=== PATIENT | female | born 1950 | race Caucasian/White ===

== ENCOUNTER 2021-12-28 12:55 | Emergency (ER) | payer MEDICARE, SELFPAY ==
--- NOTE | ~2021-12-28 | CT_ITS ---
EXAMINATION: CT HEAD WITHOUT CONTRAST CT CERVICAL SPINE WITHOUT CONTRAST CLINICAL INFORMATION: Fall. COMPARISON: None. TECHNIQUE: Imaging was performed from the skull base to vertex without intravenous administration of contrast. In addition, helical noncontrast CT imaging was acquired through the cervical spine and source images were reviewed along with axial reconstructions and sagittal and coronal MPRs. [This CT examination was performed using dose optimization techniques as appropriate, variously including the following: *Automated exposure control *Adjustment of mA and/or kV according to patient size (this includes techniques or standardized protocols for targeted exams where dose is matched to indication/reason for exam; i.e. extremities or head) *Use of iterative reconstruction technique] DLP: 1650 mGy-cm FINDINGS: HEAD: No intracranial mass, hemorrhage, or midline shift is visualized. The ventricles and sulci are proportional. No extra-axial collections are identified. The paranasal sinuses and mastoid air cells are well aerated. CERVICAL SPINE: There is no evidence of acute cervical spine fracture. Vertebral bodies remain normal in height. Cervical vertebrae have normal alignment. There is multilevel degenerative spondylosis of the cervical spine with disc height narrowing and endplate spurs and facet joint arthrosis No pre- or paravertebral soft tissue abnormality is identified. Limited assessment of the lung apices is unremarkable. CT/CT cervical spine wo IV con IMPRESSION: 1. No acute intracranial pathology. 2. No CT evidence of acute cervical spine fracture or traumatic subluxation
--- NOTE | ~2021-12-28 | XR_ITS ---
EXAMINATION: XR SHOULDER, LEFT CLINICAL INFORMATION: Status post fall with left shoulder pain. COMPARISON: None TECHNIQUE: 2 views of the left shoulder. FINDINGS: The bones and soft tissues are normal. No fracture. Glenohumeral and acromioclavicular alignment is anatomic with normal joint space. No abnormal soft tissue calcifications. XR/XR shoulder LT min 2V IMPRESSION: Normal left shoulder.
--- NOTE | ~2021-12-28 | CT_ITS ---
EXAMINATION: CT HEAD WITHOUT CONTRAST CT CERVICAL SPINE WITHOUT CONTRAST CLINICAL INFORMATION: Fall. COMPARISON: None. TECHNIQUE: Imaging was performed from the skull base to vertex without intravenous administration of contrast. In addition, helical noncontrast CT imaging was acquired through the cervical spine and source images were reviewed along with axial reconstructions and sagittal and coronal MPRs. [This CT examination was performed using dose optimization techniques as appropriate, variously including the following: *Automated exposure control *Adjustment of mA and/or kV according to patient size (this includes techniques or standardized protocols for targeted exams where dose is matched to indication/reason for exam; i.e. extremities or head) *Use of iterative reconstruction technique] DLP: 1650 mGy-cm FINDINGS: HEAD: No intracranial mass, hemorrhage, or midline shift is visualized. The ventricles and sulci are proportional. No extra-axial collections are identified. The paranasal sinuses and mastoid air cells are well aerated. CERVICAL SPINE: There is no evidence of acute cervical spine fracture. Vertebral bodies remain normal in height. Cervical vertebrae have normal alignment. There is multilevel degenerative spondylosis of the cervical spine with disc height narrowing and endplate spurs and facet joint arthrosis No pre- or paravertebral soft tissue abnormality is identified. Limited assessment of the lung apices is unremarkable. CT/CT head/brain wo IV con IMPRESSION: 1. No acute intracranial pathology. 2. No CT evidence of acute cervical spine fracture or traumatic subluxation
--- NOTE | ~2021-12-28 | CT_ITS ---
EXAMINATION: CT CHEST, ABDOMEN AND PELVIS WITHOUT CONTRAST CLINICAL INFORMATION: Trauma. Fall. COMPARISON: None. TECHNIQUE: Multidetector volumetric CT imaging of the chest, abdomen and pelvis was obtained without oral or intravenous contrast. Coronal and sagittal reformatted images are performed at the CT scanner [This CT examination was performed using dose optimization techniques as appropriate, variously including the following: *Automated exposure control *Adjustment of mA and/or kV according to patient size (this includes techniques or standardized protocols for targeted exams where dose is matched to indication/reason for exam; i.e. extremities or head) *Use of iterative reconstruction technique] DLP: 2055 mGy-cm. FINDINGS: CT CHEST: Lungs: The lungs are clear with no evidence of inflammation or nodules. Mediastinum: The mediastinum is normal. Pleura: There is no pleural effusion. No pleural mass or thickening. Axilla: No lymphadenopathy. CT ABDOMEN AND PELVIS: Liver, Gallbladder and Biliary Tree: The liver is normal in size, shape, and attenuation. No focal hepatic lesion or biliary ductal dilatation is present. The gallbladder is unremarkable with no evidence of radiopaque gallstones, gallbladder wall thickening, or obvious pericholecystic inflammatory changes. Pancreas: No acute change of the pancreas. No mass. No pancreatic duct dilatation. Spleen: Spleen normal in size and contour. No focal lesion. Adrenal Glands: Right adrenal nodule measuring 1.5 cm. Density measurement -22 Hounsfield units consistent with adrenal adenoma. Left adrenal gland is normal. Kidneys and Ureters: Right kidney is smaller than the left. The kidney measures 9.6 cm in length. The left kidney measures 11.8 cm. There is no renal mass. No hydronephrosis. No renal or ureteral stone. Bladder: Unremarkable. Gastrointestinal Tract: There is no acute abnormality. There is no bowel wall thickening /edema. There is no bowel obstruction. There is a moderate volume of stool in the colon. The appendix is nonvisualized. The small bowel loops are unremarkable. The stomach is normal. There is no hiatal hernia. Mesentery: No focal inflammation. No free fluid. No free air. Abdominal Wall: No significant hernia is appreciated. Lymph Nodes: Normal. Vascular: Vascular wall calcifications of aorta and iliac arteries. There is no aneurysm. Pelvic Viscera: Unremarkable. Osseous Structures: There is no acute osseous abnormality. Multilevel generous spondylosis spine. CT/CT abdomen pelvis wo IV con IMPRESSION: CT CHEST: No acute abnormality. CT ABDOMEN PELVIS: 1. No acute abnormality the abdomen or pelvis. 2. Right adrenal adenoma.
[2021-12-28 13:22] LABS: MANUAL DIFF FLAG NO
[2021-12-28 13:24] LABS: Basophils Percent Auto 0.4 % (0-2); Eosinophils Absolute Auto 0.2 X10*3/uL (0.0-0.4); Eosinophils Percent Auto 2.4 % (0-4); Hematocrit 44.2 % (37.0-47.0); Hemoglobin 14.1 g/dl (12.0-16.0); Imm Gran Abs Auto 0.03 X10*3/uL (0.00-0.03); Imm Gran Pct Auto 0.4 % (0.0-0.4); Lymphocytes Absolute Auto 2.3 X10*3/uL (1.2-4.9); Lymphocytes Percent Auto 30.7 % (20-40); Mean Corpuscular HGB Conc 31.9 g/dl (31.0-35.0); Mean Corpuscular Hemoglobin 28.3 pg (27.0-33.0); Mean Corpuscular Volume 88.6 fL (80.0-98.0); Mean Platelet Volume 10.1 fL (9.4-12.3); Monocytes Absolute Auto 0.6 X10*3/uL (0.1-1.2); Monocytes Percent Auto 7.4 % (2-11); Neutrophils Absolute Auto 4.4 x10*3/uL (2.0-8.3); Neutrophils Percent Auto 58.7 % (45-73); Platelet Count 226 X10*3/uL (160-400); Red Blood Count 4.99 X10*6/uL (4.20-5.50); Red Cell Distribution Width 14.3 % (11.0-16.0); White Blood Count 7.6 X10*3/uL (4.8-10.8)
[2021-12-28 13:27] VITALS: BP 155/88; PULSE 86; O2SAT 97
[2021-12-28 13:28] VITALS: BP 160/88; PULSE 83; RESP 18; TEMP 37.1; O2SAT 98; BMI 33.0
[2021-12-28 13:42] LABS: Alanine Aminotransferase 23 U/L (0-31); Albumin Level 4.4 g/dL (3.5-5.0); Alkaline Phosphatase 83 U/L (39-117); Anion Gap 13 (12-20); Aspartate Amino Transferase 18 U/L (5-31); Bilirubin Total 0.3 mg/dL (0.0-1.0); Blood Urea Nitrogen 19 mg/dL (9-16); Calcium 9.8 mg/dL (8.4-10.2); Carbon Dioxide 28 mmol/L (22-29); Chloride 105 mmol/L (96-108); Creatinine Clr Calc Pharmacy 53.5; Estimated Glomerular Filt Rate 56; Glucose Random 88 mg/dL (60-115); Potassium 4.2 mmol/L (3.3-5.1); Sodium 142 mmol/L (135-145); Total Protein 6.9 g/dL (6.5-8.0)
[2021-12-28] MEDS: Cyclobenzaprine HCl 10 MG TABLET PO (14:04)
[2021-12-28] MEDS: Acetaminophen 325 MG TABLET 975 MG PO (14:05)
--- NOTE | 2021-12-28 14:06 | ED.FALL ---
HPI - Fall General Chief Complaint: Fall Stated Complaint: FALL Time Seen by Provider: 12/28/21 13:02 Source: patient and EMS Mode of arrival: EMS Limitations: no limitations History of Present Illness HPI Narrative: 71yoF presenting to the ED via EMS after she had a mechanical fall prior to arrival while at a restaurant. She reports that there were 2 benches that meet in a corner and she went to sit down and did not realize that in that corner there was no actual bench there and she went to sit down and fell into the open area where the two benches met. She fell head 1st and injured her left side of her head/left shoulder/left posterior chest wall and back. She denies prolonged down time. She denies any symptoms prior to the fall. She reports only a headache and left shoulder pain along with left posterior rib cage pain after the fall. She denies being on any blood thinners. She denies any other symptoms complaints concerns or injuries at this time. 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) Fall from: standing (trying to sit down ) Fall witnessed: yes, by family and yes, by bystander Place fall occurred: street Loss of consciousness: none Prolonged down time: no Symptoms prior to fall: none Context: other (fell into ) Location of injury: head, neck, chest and back Location of injury - extremities: left: shoulder Severity: severe Severity scale (1-10): >10 Quality: aching Associated symptoms (after fall): headache, neck pain and other (left shoulder, left rib cage pain and lower back ) Related Data Previous Rx's Medication Instructions Recorded acetaminophen 500 mg tablet 1,000 mg PO QID PRN fever or pain 12/28/21 (Tylenol Extra Strength) #14 tabs cyclobenzaprine 10 mg tablet 10 mg PO Q8H #14 tabs 12/28/21 Allergies Allergy/AdvReac Type Severity Reaction Status Date / Time Penicillins AdvReac Unknown Verified 12/28/21 13:07 Review of Systems Review of Systems: Constitutional : No Weight loss, No Fever, No Chills, No Night Sweats, No Fatigue, No Malaise ENT/Mouth : No Hearing loss, No Ear Pain, No Nasal Congestion, No Sinus Pain, No Hoarseness, No sore throat, No Rhinorrhea, No Swallowing Difficulty Eyes: No Eye Pain, No Swelling, No Redness, No Foreign Body, No Discharge, No Vision Changes Cardiovascular : No Chest Pain, No SOB, No Dyspnea on Exertion, No Orthopnea, No Edema, No Palpitations Respiratory : No Cough, No Sputum, No Wheezing, No Smoke Exposure, No Dyspnea Gastrointestinal : No Nausea, No Vomiting, No Diarrhea, No Constipation, No abdominal Pain, No Hematochezia, No Melena Genitourinary : no irregular bleeding, No Dysuria, No Urinary Frequency, No Hematuria, No Urinary Incontinence, No Urgency, No Flank Pain, No Urinary Flow Changes, No Hesitancy Musculoskeletal : + left shoulder No joint pain, + left posterior rib cage pain, No Myalgias, No Joint Swelling Skin : No Skin Lesions, No rash Neuro : No Weakness, No Numbness, No Paresthesias, No Loss of Consciousness, No Dizziness, + head injury c Headache Psych : No Anxiety/Panic, No Depression, No SI/HI/AH/VH, No Social Issues, Heme/Lymph: No Bruising, No Bleeding,No Lymphadenopathy Endocrine : No Polyuria, No Polydipsia, No Temperature Intolerance Yes all other systems are reviewed and are negative FOR[facility]LY [facility] Past Medical History Attestation statement: The following information was validated with the patient. Source: old records reviewed and nursing notes reviewed Social History Social History Advance Directives: No Physical Exam Vital Signs: Vital Signs: Last Vital Signs Temp 98.7 F 12/28/21 13:28 Pulse 83 12/28/21 13:28 Resp 18 12/28/21 13:28 BP 160/88 H 12/28/21 13:28 Pulse Ox 98 12/28/21 13:28 O2 Del Method 12/28/21 13:28 BMI result Body Mass Index 33.0 vital signs have been reviewed as normal and appeared to be correct. Blood pressure 160/88. Heart rate normal. Respiration rate normal. Temperature normal. Oxygen saturation normal. Appearance: Alert. Oriented X3. No acute distress. Head: Patient with moderate TTP to due to left parietal aspect of the scalp with soft tissue swelling and ecchymosis noted. No obvious scalp depressions or obvious deformities. The rest of the external exam is within normal limits. No [place] signs noted. No raccoon eyes noted Eyes: PERRLA. EOMI. Conjunctiva and sclera normal. Eyelids normal. ENT: EAC normal. TM's Normal. No septal hematoma noted. No hemotympanum noted. Pharynx normal. Uvula midline. Moist mucous membranes. No lesions/ulcerations or masses noted on the tongue. Normal voice. No trismus noted. No drooling noted. No muffled voice noted. Neck: Normal inspection. Neck supple. FROM. No adenopathy. Thyroid Normal. No tracheal deviation noted. No crepitus is noted. No meningeal signs. No neck mass noted. No signs of trauma noted. CVS: Normal heart rate and rhythm. Heart sound normal. Pulses normal throughout. No murmurs/rales/gallops. Respiratory: No respiratory distress. Painless inspiration. Breath sounds normal. No wheezes/rales/rhonchi noted. Chest posterior chest wall. No crepitus is noted. No accessory muscle usage noted or decreased air movement noted. No signs of trauma. Abdomen: Soft and nontender. Nondistended. No guarding. No rigidity. Bowel sounds normal in all 4 quadrants. No distention noted. No organomegaly noted. No visible injury noted. No rebound tenderness. Negative Rovsing sign. Negative obturator's sign. Negative psoas sign. Negative [place] sign. Back: No CVA tenderness. Full range of motion noted. Nontender. No signs of trauma. Patient neuro intact bilaterally and distally on all 4 extremities. Patient's reflexes intact bilaterally and distally on all 4 extremities. No rashes/lesion/induration/fluctuance or signs of infection noted. Skin: Skin warm and dry. Normal skin color. Normal skin turgor. No rashes/lesions/lacerations noted. Extremities: patient with TTP and STS and ecchymosis and superficial abrasion to the left AC joint with limited range of motion with adbuction/flexion/extension. Otherwise all other Extremities exhibit normal range of motion and nontender. Neuro: Oriented X 3. No motor deficit. No sensory deficit. Reflexes normal. Normal steady gait. No focal neuro deficits noted. CN's II-XII intact bilaterally? Vascular: + radial pulses/+ 2 distal pedal pulses/+2 dorsalis pedis b/l. Normal cap refill. No cyanosis noted to upper extremity nails and lower extremity toes nails. Course Course Course Narrative: 13:40pm - 71yoF presenting to the ED via EMS after she had a mechanical fall prior to arrival while at a restaurant. She reports that there were 2 benches that meet in a corner and she went to sit down and did not realize that in that corner there was no actual bench there and she went to sit down and fell into the open area where the two benches met. She fell head 1st and injured her left side of her head/left shoulder/left posterior chest wall and back. She denies prolonged down time. She denies any symptoms prior to the fall. She reports only a headache and left shoulder pain along with left posterior rib cage pain after the fall. She denies being on any blood thinners. Plan: labs, CT scan/cervical spine/chest/abd and pelvis. Provide tylenol and flexeril and re-evaluate Reevaluation(s) Reevaluation #1: All labs and imaging within normal limits. No fractures or acute processes noted. Therefore at this time will place in a sling and treat symptomatic and instructed follow-up with PCP and to follow-up with orthopedics if symptoms persist for longer than 2-3 weeks. Patient with sister at bedside understand agree this plan. Time: 16:27 Medications Administered Discontinued Medications Generic Name Dose Route Start Last Admin Trade Name Freq PRN Reason Stop Dose Admin Acetaminophen 975 mg 12/28/21 13:41 12/28/21 14:05 Acetaminophen 325 Mg Tablet PO 12/28/21 13:42 975 mg ONCE ONE Administration Cyclobenzaprine HCl 10 mg 12/28/21 13:41 12/28/21 14:04 Cyclobenzaprine Hcl 10 Mg Tablet PO 12/28/21 13:42 10 mg ONCE ONE Administration Procedures Orthopedic Splinting/Casting Injury #1: Side: left Upper Extremity Injury Location: shoulder Upper Extremity Immobilizer: sling/shoulder immobilizer MDM - Fall Medical Records Attestation: I reviewed the patient's medical records. Lab Data Attestation: I reviewed the patient's lab results. Result diagrams: 12/28/21 13:19 12/28/21 13:19 Labs: Lab Results 12/28/21 12/28/21 Range/Units 13:19 13:19 WBC 7.6 (4.8-10.8) X10*3/uL RBC 4.99 (4.20-5.50) X10*6/uL Hgb 14.1 (12.0-16.0) g/dl Hct 44.2 (37.0-47.0) % MCV 88.6 (80.0-98.0) fL MCH 28.3 (27.0-33.0) pg MCHC 31.9 (31.0-35.0) g/dl RDW 14.3 (11.0-16.0) % Plt Count 226 (160-400) X10*3/uL MPV 10.1 (9.4-12.3) fL Immature Gran % (Auto) 0.4 (0.0-0.4) % Neut % (Auto) 58.7 (45-73) % Lymph % (Auto) 30.7 (20-40) % [place] % (Auto) 7.4 (2-11) % Eos % (Auto) 2.4 (0-4) % Baso % (Auto) 0.4 (0-2) % Lymph # (Auto) 2.3 (1.2-4.9) X10*3/uL [place] # (Auto) 0.6 (0.1-1.2) X10*3/uL Eos # (Auto) 0.2 (0.0-0.4) X10*3/uL Baso # (Auto) 0.0 (0.0-0.2) X10*3/uL Abs Immat Gran (auto) 0.03 (0.00-0.03) X10*3/uL Absolute Neuts (auto) 4.4 (2.0-8.3) x10*3/uL Absolute Nucleated RBC 0.000 (0.0-0.012) X10*3/uL Nucleated RBC % (auto) 0.0 (0.0-0.2) /100WBC Sodium 142 (135-145) mmol/L Potassium 4.2 (3.3-5.1) mmol/L Chloride 105 (96-108) mmol/L Carbon Dioxide 28 (22-29) mmol/L Anion Gap 13 (12-20) BUN 19 H (9-16) mg/dL Creatinine 0.98 (0.5-1.4) mg/dL Estim Creat Clear Calc 53.5 Estimated GFR 56 Random Glucose 88 (60-115) mg/dL Calcium 9.8 (8.4-10.2) mg/dL Total Bilirubin 0.3 (0.0-1.0) mg/dL AST 18 (5-31) U/L ALT 23 (0-31) U/L Alkaline Phosphatase 83 (39-117) U/L Total Protein 6.9 (6.5-8.0) g/dL Albumin 4.4 (3.5-5.0) g/dL Imaging Data CT scan of brain/cervical spine without contrast: Attestation: I personally reviewed and interpreted this imaging study as follows: Radiologist's impression: FINDINGS: HEAD: No intracranial mass, hemorrhage, or midline shift is visualized. The ventricles and sulci are proportional. No extra-axial collections are identified. The paranasal sinuses and mastoid air cells are well aerated. CERVICAL SPINE: There is no evidence of acute cervical spine fracture. Vertebral bodies remain normal in height. Cervical vertebrae have normal alignment. There is multilevel degenerative spondylosis of the cervical spine with disc height narrowing and endplate spurs and facet joint arthrosis No pre- or paravertebral soft tissue abnormality is identified. Limited assessment of the lung apices is unremarkable. CT/CT head/brain wo IV con IMPRESSION: 1. No acute intracranial pathology. 2. No CT evidence of acute cervical spine fracture or traumatic subluxation ? ? left shoulder xray: Attestation: I personally reviewed and interpreted this imaging study as follows: Radiologist's impression: FINDINGS: The bones and soft tissues are normal. No fracture. Glenohumeral and acromioclavicular alignment is anatomic with normal joint space. No abnormal soft tissue calcifications.? XR/XR shoulder LT min 2V IMPRESSION: Normal left shoulder. CT scan of chest and CT scan abdomen pelvis without IV contrast: Attestation: I personally reviewed and interpreted this imaging study as follows: Radiologist's impression: FINDINGS: CT CHEST: Lungs: The lungs are clear with no evidence of inflammation or nodules. ? Mediastinum: The mediastinum is normal.? Pleura: There is no pleural effusion. No pleural mass or thickening.? Axilla: No lymphadenopathy.? CT ABDOMEN AND PELVIS: Liver, Gallbladder and Biliary Tree: The liver is normal in size, shape, and attenuation. No focal hepatic lesion or biliary ductal dilatation is present. The gallbladder is unremarkable with no evidence of radiopaque gallstones, gallbladder wall thickening, or obvious pericholecystic inflammatory changes.? Pancreas: No acute change of the pancreas. No mass. No pancreatic duct dilatation.? Spleen: Spleen normal in size and contour. No focal lesion.? Adrenal Glands: Right adrenal nodule measuring 1.5 cm. Density measurement -22 Hounsfield units consistent with adrenal adenoma. Left adrenal gland is normal.? Kidneys and Ureters: Right kidney is smaller than the left. The kidney measures 9.6 cm in length. The left kidney measures 11.8 cm. There is no renal mass. No hydronephrosis. No renal or ureteral stone.? Bladder: Unremarkable.? Gastrointestinal Tract: There is no acute abnormality. There is no bowel wall thickening /edema. There is no bowel obstruction. There is a moderate volume of stool in the colon. The appendix is nonvisualized. The small bowel loops are unremarkable. The stomach is normal. There is no hiatal hernia.? Mesentery: No focal inflammation. No free fluid. No free air. Abdominal Wall: No significant hernia is appreciated.? Lymph Nodes: Normal. Vascular: Vascular wall calcifications of aorta and iliac arteries. There is no aneurysm. Pelvic Viscera: Unremarkable.? Osseous Structures: There is no acute osseous abnormality. Multilevel generous spondylosis spine.? CT/CT abdomen pelvis wo IV con IMPRESSION: CT CHEST: No acute abnormality. ? CT ABDOMEN PELVIS: 1.? No acute abnormality the abdomen or pelvis. 2.? Right adrenal adenoma. ? Discharge Plan Discharge Clinical Impression: Fall, Concussion, Sprain of left shoulder, Rib pain on left side Patient Disposition: Home, Self-Care Instructions: Concussion (ED), Shoulder Sprain (ED) Prescriptions: New acetaminophen [Tylenol Extra Strength] 500 mg tablet 1,000 mg PO QID PRN (Reason: fever or pain) Qty: 14 0RF cyclobenzaprine 10 mg tablet 10 mg PO Q8H Qty: 14 0RF Referrals: Physician,Unknown J [Primary Care Provider] - (your pcp) [facility] [Provider Group] (If symptoms persist for longer than 2-3 weeks and you should make a follow-up appointment)
--- NOTE | 2021-12-28 16:12 | PC.NURSE ---
KEVIN Sarabia told me to acquire vitals from pt when i entered and told the family that I was going to get vitals. pt family stated they are sleeping and would prefer i don't get vital rn aware
== END 2021-12-28 16:52 | disposition home or self-care (01) ==
PROVIDERS: Physician Assistant Medical; Emergency Provider Emergency Medicine Emergency Medical Services
DX: S06.0X0A Concussion without loss of consciousness, initial encounter (principal); S43.402A Unspecified sprain of left shoulder joint, initial encounter; R07.81 Pleurodynia; M54.50 Low back pain, unspecified; M54.2 Cervicalgia; M54.6 Pain in thoracic spine; R10.2 Pelvic and perineal pain; W01.0XXA Fall on same level from slipping, tripping and stumbling without subsequent striking against object, initial encounter; Y93.9 Activity, unspecified; Y92.511 Restaurant or cafe as the place of occurrence of the external cause; Y99.9 Unspecified external cause status; Z79.899 Other long term (current) drug therapy
CPT/HCPCS: 36415; 70450; 71250; 72125; 73030; 74176; 80053; 85025; 99284

== ENCOUNTER 2022-03-02 06:52 | Outpatient (REF) | payer MEDICARE, SELFPAY ==
[2022-03-02 11:43] LABS: MANUAL DIFF FLAG NO
[2022-03-02 11:55] LABS: Basophils Percent Auto 0.5 % (0-2); Eosinophils Absolute Auto 0.2 X10*3/uL (0.0-0.4); Eosinophils Percent Auto 2.6 % (0-4); Hematocrit 47.2 % (37.0-47.0); Imm Gran Abs Auto 0.01 X10*3/uL (0.00-0.03); Imm Gran Pct Auto 0.2 % (0.0-0.4); Lymphocytes Absolute Auto 2.4 X10*3/uL (1.2-4.9); Lymphocytes Percent Auto 39.4 % (20-40); Mean Corpuscular HGB Conc 31.8 g/dl (31.0-35.0); Mean Corpuscular Hemoglobin 28.6 pg (27.0-33.0); Mean Corpuscular Volume 89.9 fL (80.0-98.0); Mean Platelet Volume 10.7 fL (9.4-12.3); Monocytes Absolute Auto 0.5 X10*3/uL (0.1-1.2); Monocytes Percent Auto 7.7 % (2-11); Neutrophils Percent Auto 49.6 % (45-73); Platelet Count 246 X10*3/uL (160-400); Red Blood Count 5.25 X10*6/uL (4.20-5.50); Red Cell Distribution Width 14.6 % (11.0-16.0); White Blood Count 6.1 X10*3/uL (4.8-10.8)
[2022-03-02 12:14] LABS: Alanine Aminotransferase 17 U/L (0-31); Albumin Level 4.2 g/dL (3.5-5.0); Alkaline Phosphatase 76 U/L (39-117); Anion Gap 14 (12-20); Aspartate Amino Transferase 15 U/L (5-31); Bilirubin Total 0.6 mg/dL (0.0-1.0); Blood Urea Nitrogen 17 mg/dL (9-16); Calcium 9.9 mg/dL (8.4-10.2); Carbon Dioxide 29 mmol/L (22-29); Chloride 105 mmol/L (96-108); Cholesterol 220 mg/dL; Estimated Glomerular Filt Rate > 60; Glucose Fasting 107 mg/dL (60-99); HDL Cholesterol 52 mg/dL; LDL Cholesterol Calculated 145 mg/dl; Potassium 4.6 mmol/L (3.3-5.1); Sodium 143 mmol/L (135-145); Total Protein 6.8 g/dL (6.5-8.0); Triglycerides 115 mg/dL
[2022-03-02 12:34] LABS: TSH reflex Free T4 1.52 uIU/mL (0.32-4.0); Vitamin D 25-OH Total 24.7 ng/mL (>30)
== END 2022-03-02 06:53 | disposition home or self-care (01) ==
LOC: HO.HMGCLDS 06:52
PROVIDERS: PCP Nurse Practitioner Family; Visit Provider Family Medicine
DX: Z00.00 Encounter for general adult medical examination without abnormal findings (principal); E55.9 Vitamin D deficiency, unspecified; I10 Essential (primary) hypertension
CPT/HCPCS: 36415; 80053; 80061; 82306; 84443; 85025

== ENCOUNTER 2022-03-25 13:59 | Outpatient (REF) | payer MEDICARE, SELFPAY ==
[2022-03-25 14:15] LABS: Appearance Urine Clear; Color Urine Yellow; Glucose Urine UA Negative (Negative); Leukocyte Esterase Urine Trace (Negative); Nitrite Urine Negative (Negative); PH 5.5 (5.0-9.0); UMIC TRIGGER UA YES; Urine Blood Negative (Negative); Urine Ketones Negative (Negative); Urine Protein Negative (Neg-Trace)
[2022-03-25 14:18] LABS: Bacteria Urine 1+ (None Seen); Hyaline Casts Urine 0-2 /LPF (0-2); RBC Urine 0-2 /HPF (0-2); WBC Urine 0-5 /HPF (0-5)
[2022-03-25 15:13] LABS: Creatinine Urine 101.08 mg/dL; Microalbum/Creatinine Ratio Ur 14.8 ug/mg cr
== END 2022-03-25 14:00 | disposition home or self-care (01) ==
LOC: HO.LNP 13:59
PROVIDERS: Visit Provider Family Medicine
DX: I10 Essential (primary) hypertension (principal)
CPT/HCPCS: 81001; 82043

== ENCOUNTER 2022-09-26 09:19 | Outpatient (AMB) | payer MEDICARE, SELFPAY ==
[2022-09-26 09:25] VITALS: BP 138/90; PULSE 88; RESP 13; TEMP 36.5; O2SAT 99
--- NOTE | 2022-09-26 09:25 | A.OFFPC_ITS ---
Vital Signs 09/26/22 09:25 Height 5 ft 3 in BMI Reason not done Patient refused/unable BP 138/90 H Blood Pressure Location Rt brachial Position Sitting Respiration 13 Pulse 88 Temp 97.7 F Temp Source Temporal Artery Scan Pulse Oximetry (%) 99 Oxygen Delivery Method Room Air Intake Visit Reasons: Pain in Throat Intake Note: Patient states that symptoms started on Monday09/23/22. Patient states that when she presses down on throat she can feel the pain. Patient states that when she lays down it feels like her throat is closing up. Patient states she has tried taking medicine over this past weekend to see if it would help and it hasnt. Patient states that she thinks it might be an infection in her throat. Patient would like hearing checked. Associate Media Director Required: No Accompanied by: Self / Same As Patient Allergies Penicillins Adverse Reaction (Verified 09/26/22 09:35) Unknown Medication List - Last Reconciled 09/26/22 by Phyllis Porter CNP betamethasone dipropionate 0.05% 1 appl topical BID PRN cholecalciferol (vitamin D3) 25 mcg PO DAILY 90 days ketoconazole 2% 1 appl topical 3XW Tobacco use date assessed: 03/25/22 Fall risk assessment: 1 Fall in past year Last assessed Fall Risk: 09/26/22 Dental Screening Dental Screen Date: 09/26/22 Did you have a dental visit in the last 12 months?: No Did you have a dental problem in the last 6 months where you did not have access to dental care?: No Was dental information given to patient?: Yes HPI HPI Comments History of Present Illness Details 71-year-old female presents with complaints of throat pain. She reports pain with swallowing, yawning, and palpation of her anterior neck. She notes it feels as though her throat is closing while lying supine. She reports associated fatigue. Her symptoms have been ongoing for the past 4 days and refractory to bloy-wwm-eqzxwud remedies. No sick contact. No fever, chills, body aches, fatigue, or weakness. [facility] Medical History (Updated 09/26/22 @ 10:06 by Phyllis Portre CNP) No pertinent past medical history Surgical History (Updated 09/26/22 @ 09:42 by Linda Berry MA) No pertinent past surgical history Family History (Updated 08/14/23 @ 09:43 by Linda Berry MA) Sister Diabetes Social History Housing: Condominium Patient Tobacco Use Status: Current someday Tobacco user Tobacco use type: Cigarette Cigarettes Per Day: 4 e-Cigarette/Vaping Use: Never Used Second Hand Smoke Exposure: No service: No Current occupational status: retired Current occupational exposures/hazards: No Cognitive needs: No Hearing needs: Yes Vision needs: Yes Questionnaire Thrive Questionnaire Date Thrive assessed: 03/25/22 MATT-7 AMB Questionnaire MATT-7 Date MATT - 7 assessed: 03/25/22 Source: Developed by Drs. Shai Pereyra, Janette Martel, Cheikh Theodore and colleagues, with an educational rosie from [employer]. Review of Systems Const Details: Const Denies chills, Denies fatigue, Denies fever(s), Denies headache(s) and Denies weakness ENT Reports as per HPI Card Denies chest pain, Denies lightheadedness, Denies dyspnea and Denies other (Palpitations) Resp Denies cough, Denies dyspnea, Denies wheezing and Denies other ( shortness of breath) GI Denies abdominal pain, Denies melena, Denies hematochezia, Denies change in bowel habits, Denies dyspepsia and Denies nausea Denies hematuria and Denies dysuria Musc Denies abnormal gait, Denies myalgias, Denies arthralgias, Denies numbness and Denies tingling Neuro Denies abnormal gait, Denies dizziness, Denies headache(s), Denies memory loss, Denies numbness, Denies Sensory deficit (Neuro), Denies tingling and Denies weakness Psych Denies anxiety, Denies depression, Denies memory loss Endo Denies cold intolerance, Denies fatigue, Denies heat intolerance, Denies polydipsia and Denies polyuria Aller/Immun Denies wheezing Physical exam (Primary Care) Vital Signs: Last Vital Signs Temp 97.7 F 09/26/22 09:25 Pulse 88 09/26/22 09:25 Resp 13 09/26/22 09:25 BP 138/90 H 09/26/22 09:25 Pulse Ox 99 09/26/22 09:25 Oxygen Delivery Method Room Air 09/26/22 09:25 Tobacco/Smoking Status: Tobacco use Status Tobacco use date assessed 03/25/22 09/26/22 09:30 Patient Tobacco Use Status Current everyday Tobacco 09/26/22 09:30 e-Cigarette/Vaping Use Never Used 09/26/22 09:30 Thrive Assessment: Date of Thrive Assessment Date Thrive assessed 03/25/22 09/26/22 09:30 Const Other: General: no acute distress and well developed Nutritional Appearance: well nourished Orientation/consciousness: patient oriented x3 [facility] ENT Head is normocephalic Bilateral ear canal and TM are normal Nasal turbinates are pink and moist Oropharynx and tonsils with minimal erythema and yellow patches, tonsils are slightly swollen; consistent with strep pharyngitis Sinuses are nontender with palpation No auricular or cervical lymphadenopathy Eyes General: appearance normal, both eyes and all related structures Pupils: Equal, round and reactive pupils present EOM: EOMs intact bilaterally Resp Effort & Inspection: normal respiratory effort Auscultation: clear to auscultation bilaterally Cardio Rate: regular rate Rhythm: regular rhythm Heart sounds: S1 normal heart sound present, S2 normal heart sound present, no gallops, no murmurs and no rubs GI Palpation (GI): No Abdominal aortic bruit present, Soft to palpation, nontender, No hepatosplenomegaly present and No Rebound tenderness present Auscultation: normal bowel sounds General: Yes no CVA tenderness Back/Spine/Pelvis Back: no CVA tenderness Cervical Spine: cervical ROM normal and No Cervical spine tenderness Thoracic/Lumbar Spine: thoraco-lumbar ROM normal, No pain with thoraco-lumbar ROM, No thoracic spinal tenderness and No lumbar spinal tenderness Extrem General: Yes normal to inspection, No edema and No calf tenderness Neuro General: patient oriented x3, gait normal and no focal neuro deficit Cranial nerves: Yes Equal, round and reactive pupils present Cognition (Neuro): normal cognition Gait exam (Neuro): Normal gait present Sensory Exam: No Sensory deficit (Neuro) Psych Appearance: grossly normal Affect: normal affect Attitude: cooperative Thought process: Normal thought process present Assessment and Plan Assessment & Plan (1) Strep pharyngitis: Code(s): J02.0 - Streptococcal pharyngitis Plan: Oropharynx and tonsils with minimal erythema and yellow patches, tonsils are slightly swollen; consistent with strep pharyngitis Z-Jeramie ordered. Take as prescribed May take Tylenol or Motrin for pain or discomfort Adequate hydration encouraged Return with worsening or new symptoms Verbalized understanding and agreed with treatment plan. Medications: New azithromycin (Zithromax Z-Jeramie) For 250 mg dose pack: take 500 mg today (day 1), then 250 mg for 4 days (days 2-5) PO 6 tabs 0RF Coding Level of Care Code Est Pt Level 3 (69966) Diagnoses Strep pharyngitis J02.0
== END 2022-09-26 10:12 | disposition home or self-care (01) ==
PROVIDERS: PCP Nurse Practitioner Family; Visit Provider Nurse Practitioner Family
DX: J02.0 Streptococcal pharyngitis (principal)
CPT/HCPCS: 99213

== ENCOUNTER 2022-09-29 07:10 | Outpatient (REF) | payer MEDICARE, SELFPAY ==
[2022-09-29 11:59] LABS: Cholesterol 214 mg/dL; HDL Cholesterol 55 mg/dL; LDL Cholesterol Calculated 139 mg/dl; Triglycerides 103 mg/dL
[2022-09-29 12:17] LABS: Vitamin D 25-OH Total 53.2 ng/mL (>30)
== END 2022-09-29 07:11 | disposition home or self-care (01) ==
LOC: HO.HMGCLDS 07:10
PROVIDERS: PCP Nurse Practitioner Family; Visit Provider Nurse Practitioner Family
DX: E55.9 Vitamin D deficiency, unspecified (principal); E78.00 Pure hypercholesterolemia, unspecified
CPT/HCPCS: 36415; 80061; 82306

== ENCOUNTER 2022-12-19 06:49 | Outpatient (REF) | payer MEDICARE, SELFPAY ==
[2022-12-19 11:15] LABS: MANUAL DIFF FLAG NO
[2022-12-19 11:35] LABS: Basophils Percent Auto 0.5 % (0-2); Eosinophils Absolute Auto 0.2 X10*3/uL (0.0-0.4); Eosinophils Percent Auto 2.6 % (0-4); Hematocrit 45.9 % (37.0-47.0); Hemoglobin 14.5 g/dl (12.0-16.0); Imm Gran Abs Auto 0.01 X10*3/uL (0.00-0.03); Imm Gran Pct Auto 0.2 % (0.0-0.4); Lymphocytes Percent Auto 34.5 % (20-40); Mean Corpuscular HGB Conc 31.6 g/dl (31.0-35.0); Mean Corpuscular Hemoglobin 27.8 pg (27.0-33.0); Mean Corpuscular Volume 88.1 fL (80.0-98.0); Mean Platelet Volume 10.7 fL (9.4-12.3); Monocytes Absolute Auto 0.5 X10*3/uL (0.1-1.2); Monocytes Percent Auto 7.9 % (2-11); Neutrophils Absolute Auto 3.2 x10*3/uL (2.0-8.3); Neutrophils Percent Auto 54.3 % (45-73); Platelet Count 236 X10*3/uL (160-400); Red Blood Count 5.21 X10*6/uL (4.20-5.50); Red Cell Distribution Width 14.3 % (11.0-16.0); White Blood Count 5.8 X10*3/uL (4.8-10.8)
[2022-12-19 11:53] LABS: Alanine Aminotransferase 16 U/L (0-31); Albumin Level 4.1 g/dL (3.5-5.0); Alkaline Phosphatase 88 U/L (39-117); Anion Gap 11 (12-20); Aspartate Amino Transferase 15 U/L (5-31); Bilirubin Total 0.4 mg/dL (0.0-1.0); Blood Urea Nitrogen 19 mg/dL (9-16); Calcium 9.7 mg/dL (8.4-10.2); Carbon Dioxide 30 mmol/L (22-29); Chloride 105 mmol/L (96-108); Estimated Glomerular Filt Rate > 60; Glucose Random 98 mg/dL (60-115); Potassium 4.3 mmol/L (3.3-5.1); Sodium 142 mmol/L (135-145); Total Protein 6.9 g/dL (6.5-8.0)
[2022-12-20 06:12] LABS: HBS Num1 24.37 mIU/mL (0-7.99); HBc Num1 0.08 S/CO (0.00-0.79); HBsAGNum1 0.33 S/CO (0.00-0.99); Hepatitis B Core Antibody Nonreactive (Nonreactive); Hepatitis B Surface Antigen Negative (Negative); ~HepC Num1 0.04 S/CO (0.00-0.79); ~Hepatitis B Surface Antibody REACTIVE (Nonreactive); ~Hepatitis C Antibody Nonreactive (Nonreactive)
[2022-12-21 21:04] LABS: TS Negative Control Passed; TS Panel A 0; TS Panel B 0; TS Positive Control Passed; TSpotTB Negative (Negative)
== END 2022-12-19 06:50 | disposition home or self-care (01) ==
LOC: HO.HMGCLDS 06:49
PROVIDERS: PCP Nurse Practitioner Family; Visit Provider Physician Assistant Medical
DX: L40.0 Psoriasis vulgaris (principal); L71.8 Other rosacea; Z11.59 Encounter for screening for other viral diseases; Z72.89 Other problems related to lifestyle
CPT/HCPCS: 36415; 80053; 85025; 86481; 86704; 86706; 86803; 87340

== ENCOUNTER 2023-10-20 15:38 | Outpatient (AMB) | payer MEDICARE, SELFPAY ==
--- NOTE | 2023-10-20 15:41 | A.OFFPC_ITS ---
Vital Signs 10/20/23 15:47 Height 5 ft 4 in Weight 260 lb BMI 44.6 BP 132/78 Blood Pressure Location Lt brachial Position Sitting Respiration 12 Pulse 98 Pulse Source Pulse Oximeter Temp 97.9 F Temp Source Oral Pulse Oximetry (%) 96 Oxygen Delivery Method Room Air Intake Visit Reasons: pain on right shoulder for about a month Intake Note: patient here c/o pain in right shoulder for a month. Hotel Custodian Required: No Is last menstrual period known: No Post menopausal: No Patient : No Allergies Penicillins Adverse Reaction (Verified 10/20/23 15:56) Unknown Medication List - Last Reconciled 10/20/23 by Phyllis Porter CNP betamethasone dipropionate 0.05% 1 appl topical BID PRN Tobacco use date assessed: 10/20/23 Fall risk assessment: No Falls in past year Last assessed Fall Risk: 10/20/23 Dental Screening Dental Screen Date: 10/20/23 Did you have a dental visit in the last 12 months?: No Did you have a dental problem in the last 6 months where you did not have access to dental care?: No Was dental information given to patient?: Patient declined HPI HPI Comments History of Present Illness Details 72-year-old female presents with complai nts of right shoulder pain only with certain movements. She notes that she visited [place] or 2 weeks in June and persistently carried a backpack on the affected shoulder. She noticed the pain before before she travelled to [place]. She also engages in a lot of lifting of objects. She recalls playing golf in May, immediately before her pain started. She describes the pain as ache. No tingling, numbness, or loss of sensation. She denies fall, injury, or trauma. She takes Tylenol as needed with some relief. She has also been applying cold and heat. She does not like taking medications. [facility] Medical History (Updated 10/20/23 @ 15:57 by Phyllis Porter CNP) No pertinent past medical history Surgical History No pertinent past surgical history Family History Sister Diabetes Social History Housing: Condominium Patient Tobacco Use Status: Current someday Tobacco user Tobacco use type: Cigarette Cigarettes Per Day: 4 e-Cigarette/Vaping Use: Never Used Second Hand Smoke Exposure: No service: No Current occupational status: retired Current occupational exposures/hazards: No Cognitive needs: No Hearing needs: Yes Vision needs: Yes Questionnaire Thrive Questionnaire Date Thrive assessed: 03/25/22 MATT-7 AMB Questionnaire MATT-7 Date MATT - 7 assessed: 03/25/22 Source: Developed by Drs. Shai Pereyra, Janette Martel, Cheikh Theodore and colleagues, with an educational rosie from [employer]. Review of Systems Const Details: Const Denies chills, Denies fatigue, Denies fever(s), Denies headache(s) and Denies weakness ENT Denies dizziness and Denies headache(s) Card Denies chest pain, Denies lightheadedness, Denies dyspnea and Denies other (Palpitations) Resp Denies cough, Denies dyspnea, Denies wheezing and Denies other ( shortness of breath) GI Denies abdominal pain, Denies melena, Denies hematochezia, Denies change in bowel habits, Denies dyspepsia and Denies nausea Denies hematuria and Denies dysuria Musc Reports right shoulder pain, Denies abnormal gait, Denies numbness and Denies tingling Skin/Breast Denies rash, Denies unusual bruising and Denies wounds Neuro Denies abnormal gait, Denies dizziness, Denies headache(s), Denies memory loss, Denies numbness, Denies Sensory deficit (Neuro), Denies tingling and Denies weakness Psych Denies anxiety, Denies depression, Denies memory loss Endo Denies cold intolerance, Denies fatigue, Denies heat intolerance, Denies polydipsia and Denies polyuria Aller/Immun Denies wheezing Physical exam (Primary Care) Vital Signs: Last Vital Signs Temp 97.9 F 10/20/23 15:47 Pulse 98 10/20/23 15:47 Resp 12 10/20/23 15:47 BP 132/78 10/20/23 15:47 Pulse Ox 96 10/20/23 15:47 Oxygen Delivery Method Room Air 10/20/23 15:47 BMI result Body Mass Index 44.6 Tobacco/Smoking Status: Tobacco use Status Tobacco use date assessed 10/20/23 10/20/23 15:50 Patient Tobacco Use Status Current someday Tobacco 10/20/23 15:43 Tobacco use type Cigarette 10/20/23 15:43 e-Cigarette/Vaping Use Never Used 10/20/23 15:43 Thrive Assessment: Date of Thrive Assessment Date Thrive assessed 03/25/22 10/20/23 15:43 Const Other: General: no acute distress and well developed Nutritional Appearance: well nourished Orientation/consciousness: patient oriented x3 [facility] Head: Yes normocephalic and Yes atraumatic Eyes General: appearance normal, both eyes and all related structures Pupils: Equal, round and reactive pupils present EOM: EOMs intact bilaterally Resp Effort & Inspection: normal respiratory effort Auscultation: clear to auscultation bilaterally Cardio Rate: regular rate Rhythm: regular rhythm Heart sounds: S1 normal heart sound present, S2 normal heart sound present, no gallops, no murmurs and no rubs GI Palpation (GI): No Abdominal aortic bruit present, Soft to palpation, nontender, No hepatosplenomegaly present and No Rebound tenderness present Auscultation: normal bowel sounds General: Yes no CVA tenderness Back/Spine/Pelvis Back: no CVA tenderness Cervical Spine: cervical ROM normal and No Cervical spine tenderness Thoracic/Lumbar Spine: thoraco-lumbar ROM normal, No pain with thoraco-lumbar ROM, No thoracic spinal tenderness and No lumbar spinal tenderness Extrem General: Yes normal to inspection, No edema and No calf tenderness Limited ROM of the shoulder; tenderness with ROM. Tenderness with palpation of right deltoid proximal to the axilla Skin General: warm and dry. Normal skin color. Normal skin turgor Neuro General: patient oriented x3, gait normal and no focal neuro deficit Cranial nerves: Yes Equal, round and reactive pupils present Cognition (Neuro): normal cognition Gait exam (Neuro): Normal gait present Sensory Exam: No Sensory deficit (Neuro) Psych Appearance: grossly normal Affect: normal affect Attitude: cooperative Thought process: Normal thought process present Assessment and Plan Assessment & Plan (1) Right shoulder pain: Code(s): M25.511 - Pain in right shoulder Plan: Atraumatic right shoulder pain for about 5 months Limited ROM of the shoulder; tenderness with ROM. Tenderness with palpation of right deltoid proximal to the axilla Likely muscular versus skeletal injury Naproxen 500 mg twice daily ordered. Advised to take as prescribed Warm/cool compresses encouraged Instructed on stretching as tolerable Advised to avoid heavy lifting until completely healed Encouraged to get fasting lab work done before her next visit Follow-up in 1 month for an extended physical exam or sooner with worsening or new symptoms Verbalized understanding and agreed with the treatment plan (2) Laboratory tests ordered as part of a complete physical exam (CPE): Code(s): Z00.00 - Encounter for general adult medical examination without abnormal findings Plan: Fasting labs ordered in preparation of a complete physical exam. Advised to fast for at least 10 hours before getting labs drawn. May drink water Verbalized understanding and agreed with treatment plan. Orders: Orders Comprehensive Kim. Panel Fast Today Z00.00 - Encounter for general adult medical examination without abnormal findings UA CC w/rflx Micro + Cult Today Z00.00 - Encounter for general adult medical examination without abnormal findings Microalbumin, Random (w Creat) Today Z00.00 - Encounter for general adult medical examination without abnormal findings Vitamin D 25-OH Total Today E55.9 - Vitamin D deficiency, unspecified Complete Blood Count Auto Diff Today Z00.00 - Encounter for general adult medical examination without abnormal findings Lipid Panel Today E78.00 - Pure hypercholesterolemia, unspecified, Z00.00 - Encounter for general adult medical examination without abnormal findings TSH reflex Free T4 Today Z00.00 - Encounter for general adult medical examination without abnormal findings Medications: New naproxen 500 mg PO BID 14 days 28 tabs 0RF Coding Level of Care Code New Pt Level 4 (44202) Diagnoses Right shoulder pain M25.511 Laboratory tests ordered as part of a complete physical exam (CPE) Z00.00
[2023-10-20 15:47] VITALS: BP 132/78; PULSE 98; RESP 12; TEMP 36.6; O2SAT 96; BMI 44.6
== END 2023-10-20 16:14 | disposition home or self-care (01) ==
PROVIDERS: PCP Nurse Practitioner Family; Visit Provider Nurse Practitioner Family
DX: M25.511 Pain in right shoulder (principal)
CPT/HCPCS: 99214

== ENCOUNTER 2023-11-15 06:37 | Outpatient (REF) | payer MEDICARE, SELFPAY ==
[2023-11-15 10:05] LABS: MANUAL DIFF FLAG NO
[2023-11-15 10:09] LABS: Basophils Percent Auto 0.5 % (0-2); Eosinophils Absolute Auto 0.2 X10*3/uL (0.0-0.4); Eosinophils Percent Auto 2.9 % (0-4); Hematocrit 45.7 % (37.0-47.0); Hemoglobin 14.5 g/dl (12.0-16.0); Imm Gran Abs Auto 0.02 X10*3/uL (0.00-0.03); Imm Gran Pct Auto 0.3 % (0.0-0.4); Lymphocytes Absolute Auto 2.1 X10*3/uL (1.2-4.9); Lymphocytes Percent Auto 36.1 % (20-40); Mean Corpuscular HGB Conc 31.7 g/dl (31.0-35.0); Mean Corpuscular Hemoglobin 28.5 pg (27.0-33.0); Mean Platelet Volume 10.4 fL (9.4-12.3); Monocytes Absolute Auto 0.5 X10*3/uL (0.1-1.2); Monocytes Percent Auto 7.9 % (2-11); Neutrophils Percent Auto 52.3 % (45-73); Platelet Count 239 X10*3/uL (160-400); Red Blood Count 5.08 X10*6/uL (4.20-5.50); White Blood Count 5.8 X10*3/uL (4.8-10.8)
[2023-11-15 10:40] LABS: Alanine Aminotransferase 20 U/L (0-31); Albumin Level 4.1 g/dL (3.5-5.0); Alkaline Phosphatase 82 U/L (39-117); Anion Gap 13 (12-20); Aspartate Amino Transferase 15 U/L (5-31); Bilirubin Total 0.3 mg/dL (0.0-1.0); Blood Urea Nitrogen 23 mg/dL (9-16); Calcium 9.7 mg/dL (8.4-10.2); Carbon Dioxide 29 mmol/L (22-29); Chloride 107 mmol/L (96-108); Cholesterol 207 mg/dL (<200); Estimated Glomerular Filt Rate > 60; Glucose Fasting 112 mg/dL (60-99); HDL Cholesterol 54 mg/dL (>40); LDL Cholesterol Calculated 133 mg/dL (<100); Potassium 4.6 mmol/L (3.3-5.1); Sodium 144 mmol/L (135-145); Total Protein 6.9 g/dL (6.5-8.0); Triglycerides 102 mg/dL (<150)
[2023-11-15 10:42] LABS: TSH reflex Free T4 1.64 uIU/mL (0.32-4.0)
== END 2023-11-15 06:38 | disposition home or self-care (01) ==
LOC: HO.HMGCLDS 06:37
PROVIDERS: PCP Nurse Practitioner Family; Visit Provider Nurse Practitioner Family
DX: Z00.00 Encounter for general adult medical examination without abnormal findings (principal); E78.00 Pure hypercholesterolemia, unspecified; E55.9 Vitamin D deficiency, unspecified
CPT/HCPCS: 36415; 80053; 80061; 82306; 84443; 85025

== ENCOUNTER 2024-01-01 06:45 | Outpatient (REF) | payer MEDICARE, SELFPAY ==
[2024-01-04 03:54] LABS: TS Negative Control Passed; TS Panel A 0; TS Panel B 0; TS Positive Control Passed; TSpotTB Negative (Negative)
== END 2024-01-01 06:46 | disposition home or self-care (01) ==
LOC: HO.HMGCLDS 06:45
PROVIDERS: PCP Nurse Practitioner Family; Visit Provider Physician Assistant Medical
DX: L40.0 Psoriasis vulgaris (principal)
CPT/HCPCS: 36415; 86481

== ENCOUNTER 2024-01-04 10:40 | Outpatient (AMB) | payer MEDICARE, SELFPAY ==
[2024-01-04 10:58] VITALS: BP 125/78; PULSE 90; O2SAT 97; BMI 44.1
--- NOTE | 2024-01-04 10:58 | MHC.PC.OV ---
Vital Signs 01/04/24 10:58 Height 5 ft 4 in Weight 257 lb BMI 44.1 BP 125/78 Blood Pressure Location Rt brachial Position Sitting Pulse 90 Pulse Source Pulse Oximeter Pulse Oximetry (%) 97 Oxygen Delivery Method Room Air Intake Visit Reasons: [facility] transfer-ok'd Intake Note: Pt is here today for PE visit transfer from [facility]. Allergies Penicillins Adverse Reaction (Verified 01/04/24 11:06) Unknown Medication List - Last Reconciled 01/04/24 by Rose Canchola MD betamethasone dipropionate 0.05% 1 appl topical BID PRN naproxen 500 mg PO BID 14 days sertraline (Zoloft) 50 mg PO DAILY Tobacco use date assessed: 01/04/24 Fall risk assessment: No Falls in past year Last assessed Fall Risk: 01/04/24 Dental Screening Dental Screen Date: 10/20/23 HPI [facility] transfer-okd HPI Details Pt presents for new patient visit . She complains of chronic insomnia, fatigue, feeling overwhelmed, racing thoughts, anxiety worse since her sister in July. She denies depression or suicidal ideation. Patient gained 80 lb in the last year and a half, stress eating. 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 HPI Comments History of Present Illness Details Patient presents for new patient visit. [facility] Medical History (Updated 01/04/24 @ 11:49 by Rose Canchola MD) No pertinent past medical history Surgical History (Updated 01/04/24 @ 11:16 by NORA Luna) Hx of blepharoplasty Hx of tubal ligation Hx of appendectomy Family History Sister Diabetes Stroke Father Hypertension CAD (coronary artery disease) Mother Diabetes Hypertension Social History Housing: Condominium Patient Tobacco Use Status: Current someday Tobacco user Tobacco use type: Cigarette Cigarettes Per Day: 4 e-Cigarette/Vaping Use: Never Used Second Hand Smoke Exposure: No service: No Current occupational status: employed and retired Current occupational exposures/hazards: No Cognitive needs: No Hearing needs: Yes Vision needs: Yes Questionnaire PHQ-9 Over the last 2 weeks, how often have you been bothered by any of the following problems? 1. Little interest or pleasure in doing things: several days 2. Feeling down, depressed, or hopeless: several days 3. Trouble falling or staying asleep, or sleeping too much: several days 4. Feeling tired or having little energy: several days 5. Poor appetite or overeating: several days 6. Feeling bad about yourself - or that you are a failure or have let yourself or your family down: several days 7. Trouble concentrating on things, such as reading the newspaper or watching television: not at all 8. Moving or speaking so slowly that other people could have noticed. Or the opposite - being so fidgety or restless that you have been moving around a lot more than usual: not at all 9. Thoughts that you would be better off or of hurting yourself in some way: not at all Total score: 6 Depression Screening Interpretation: Negative Depression Screening Done: Yes 03125 - PHQ-9 Billing: Yes Source: Developed by Drs. Shai Pereyra, Janette Martel, Cheikh Theodore and colleagues, with an educational rosie from [employer]. Thrive Questionnaire Date Thrive assessed: 01/04/24 I am a: Patient What is your living situation today?: I have a steady place to live Within the past 12 months, did the food you bought not last and you didn't have the money to get more?: Never true Within the past 12 months, did you worry whether your food would run out before you got money to buy more?: Never true Do you have trouble paying for medicines?: No Do you have trouble getting transportation to medical appointments?: No Do you have trouble paying your heating and electricity bill?: No Do you have trouble taking care of your child, family member or friend?: Yes Do you have trouble with day-to-day activities such as bathing, preparing meals, shopping, managing finances, etc.?: No Are you currently unemployed and looking for a job?: No Are you interested in more education?: No Please select the resources that you would like help with: None Currently or been in a relationship where the following occur: No concerns reported THRIVE Score: 0 AUDIT C Alcohol Use Questionnaire (AUDIT-C) 1. How often do you have a drink containing alcohol?: Monthly or less 2. How many drinks containing alcohol do you have on a typical day when you are drinking?: 1 or 2 3. How often do you have six or more drinks on one occasion?: Never Total Score: 1 MATT-7 AMB Questionnaire MATT-7 Date MATT - 7 assessed: 01/04/24 Feeling nervous, anxious, or on edge: 1 = Several days Not being able to stop or control worryin = Several days Worrying too much about different things: 1 = Several days Trouble relaxin = Several days Being so restless that it is hard to sit still: 0 = Not at all Becoming easily annoyed or irritable: 1 = Several days Feeling afraid as if something awful might happen: 1 = Several days Total MATT-7 score (0-4 normal; 5-9 mild; 10-14 moderate; 15-21 severe): 6 Source: Developed by Drs. Shai Pereyra, Janette Martel, Cheikh Theodore and colleagues, with an educational rosie from [employer]. MATT-7 Assessment Billing MATT-7 Assessment Tool: MATT-7 Assessment 03982 Review of Systems Const All systems reviewed & are unremarkable except as noted in HPI and below Card Reports no additional complaints Resp Reports no additional complaints GI Reports no additional complaints Physical exam (Primary Care) Vital Signs: Last Vital Signs Pulse 90 01/04/24 10:58 Pulse Ox 97 01/04/24 10:58 Oxygen Delivery Method Room Air 01/04/24 10:58 BMI result Body Mass Index 44.1 Tobacco/Smoking Status: Tobacco use Status Tobacco use date assessed 01/04/24 01/04/24 11:12 Patient Tobacco Use Status Current someday Tobacco 01/04/24 10:58 Tobacco use type Cigarette 01/04/24 10:58 e-Cigarette/Vaping Use Never Used 01/04/24 10:58 PHQ-9: PHQ-9 Score PHQ-9: Total score 6 01/04/24 11:16 Depression Screening Interpretation: Negative Thrive Assessment: Date of Thrive Assessment Date Thrive assessed 01/04/24 01/04/24 11:12 Currently or been in a relationship where the following occur: No concerns reported Const General: no acute distress Resp Effort & Inspection: normal respiratory effort Auscultation: clear to auscultation bilaterally Cardio Rhythm: regular rhythm Heart sounds: S1 normal heart sound present and S2 normal heart sound present GI Inspection: Yes normal to inspection Palpation (GI): Soft to palpation Coding Level of Care Code Est Pt Level 3 (01294) Diagnoses Anxiety F41.9 Obesity E66.9 Additional Codes MATT-7 Assessment Billing - MATT-7 Assessment Tool: MATT-7 Assessment 34883 ([id number]) PHQ-9 - 59187 - PHQ-9 Billing: Yes ([id number]) Assessment & Plan Assessment & Plan (1) Anxiety: Code(s): F41.9 - Anxiety disorder, unspecified Category: Medical Plan: Stress management discussed with the patient she will be referred to a counseling. Zoloft 25 mg for the 1st week then increase to 50 mg daily will be started. Follow-up in 1 month (2) Obesity: Code(s): E66.9 - Obesity, unspecified Category: Medical Plan: Increasing physical activity decreasing caloric intake discussed with the patient. She is contemplating trying GLP 1 receptor agonist Medications: New sertraline (Zoloft) 1/2 tabl for 1 week, then 1 tabl qd 50 mg PO DAILY 90 tabs 0RF
== END 2024-01-04 11:58 | disposition home or self-care (01) ==
PROVIDERS: PCP Nurse Practitioner Family; Visit Provider Internal Medicine
DX: F41.9 Anxiety disorder, unspecified (principal); E66.9 Obesity, unspecified; Z68.41 Body mass index [BMI] 40.0-44.9, adult

== ENCOUNTER → 2024-01-04 10:40 | Outpatient (BNVA) | payer MEDICARE, SELFPAY | PROVIDERS: PCP Nurse Practitioner Family; Visit Provider Internal Medicine | DX: R41.9 Unspecified symptoms and signs involving cognitive functions and awareness (principal); E66.9 Obesity, unspecified; Z68.41 Body mass index [BMI] 40.0-44.9, adult; Z71.3 Dietary counseling and surveillance | CPT/HCPCS: 96127; 99212 ==

== ENCOUNTER 2024-03-14 09:19 | Outpatient (REF) | payer MEDICARE, SELFPAY ==
--- NOTE | ~2024-03-14 | XR_ITS ---
EXAMINATION: XR CHEST 2 VIEWS HISTORY: R05.9 - Cough, unspecified COMPARISON: There are no prior studies for comparison. FINDINGS: PA and lateral views of the chest are submitted. The lungs are hyperinflated, consistent with COPD. The lungs are clear. There is no pleural effusion, pneumothorax, or pulmonary vascular congestion. The heart is normal in size. There is degenerative disc disease of the spine. XR/XR chest 2V IMPRESSION: COPD. The lungs are clear. Electronically signed by: Shai Smith MD 03/14/2024 11:37 AM EST
--- OUTSIDE RECORDS SUMMARY | 2024-03-14 13:14 | XMS_ITS | Referral Summary ---
Author Organization [facility] Address [address] [place] [address] Care Team Providers Care Inspector Outside Steam Distribution Name Role Phone Unavailable Primary Care Provider Unavailabl e Social History Tobacco Use Types Packs/Day Years Used Date Smoking Tobacco: Never Assessed Comments Unknown Sex and Gender Information Value Date Recorded Sex Assigned at Not on file Legal Sex Female 11:13 AM PST Gender Identity Not on file Sexual Orientation Not on file Plan of Treatment Not on file
--- OUTSIDE RECORDS SUMMARY | 2024-03-14 13:14 | XMS_ITS | Clinical Summary ---
Author Organization [facility] Address [address] [place] [address] Care Team Providers Care Information Technology Advisor Name Role Phone Unavailable Primary Care Provider [...]
--- OUTSIDE RECORDS SUMMARY | 2024-03-14 13:14 | XMS_ITS | CCD ---
Author Organization [facility] [place] Address [address] [place] [address] Care Team Providers Care Dermatology Physician Assistant Name Role Phone Unavailable Primary Care Provider [...]
--- OUTSIDE RECORDS SUMMARY | 2024-03-14 13:14 | XMS_ITS ---
Author Organization [facility] [place] [address] [place] [address] Care Team Providers Care Paving Block Cutter Name Role Phone Unavailable Unavailable Unavailable Surgery Details Not on file Complications Check Surgery Details section. Procedure Estimated Blood Loss Check Surgery Details section. Procedure Findings Check Surgery Details section. Procedure Specimens Taken Check Surgery Details section.
--- OUTSIDE RECORDS SUMMARY | 2024-03-14 13:14 | XMS_ITS | Encounter Summary ---
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 Name Role Phone Unavailable Primary Care Provider Unavailabl e Prior Encounters Date Type Department Care Team Description 03/04/2019 Converted 13x Documents [place] [facility] [address] [facility] [place], [place] [address] <No scans attached> 03/04/2019 Converted CPS Chart Documents NE [facility] [address] [facility] [place], [place] [address] <No scans attached> Plan of Treatment Not on file Procedures Procedure Name Priority Date/Time Associated Diagnosis Comments PANORAMIC RADIOGRAPHIC IMAGE Routine 08/31/2015 1:00 AM MDT ADDITIONAL X-RAY Routine 08/31/2015 1:00 AM MDT ADDITIONAL X-RAY Routine 08/31/2015 1:00 AM MDT ADDITIONAL X-RAY Routine 08/31/2015 1:00 AM MDT SINGLE X-RAY Routine 08/31/2015 1:00 AM MDT 13 LIMITED ORAL EVALUATION - PROBLEM FOCUSED Routine 08/29/2015 1:00 AM MDT 11 LIMITED ORAL EVALUATION - PROBLEM FOCUSED Routine 08/29/2015 1:00 AM MDT Visit Diagnoses Not on file
== END 2024-03-14 09:20 | disposition home or self-care (01) ==
LOC: HO.HMGCX 09:19
PROVIDERS: PCP Internal Medicine; Visit Provider Internal Medicine
DX: R05.9 Cough, unspecified (principal); E66.9 Obesity, unspecified; Z68.41 Body mass index [BMI] 40.0-44.9, adult; F41.9 Anxiety disorder, unspecified; Z79.899 Other long term (current) drug therapy
CPT/HCPCS: 71046; 96127; 99212

== ENCOUNTER → 2024-03-14 10:06 | Outpatient (BNV) | payer MEDICARE, SELFPAY | PROVIDERS: PCP Internal Medicine; Visit Provider Radiology Diagnostic Radiology | DX: J44.9 Chronic obstructive pulmonary disease, unspecified (principal) | CPT/HCPCS: 71046 ==

== ENCOUNTER 2024-05-10 09:17 | Outpatient (AMB) | payer MEDICARE, SELFPAY ==
--- NOTE | 2024-05-10 09:21 | MHC.PC.OV ---
Vital Signs 05/10/24 09:22 Height 5 ft 4 in Weight 251 lb BMI 43.1 BP 120/64 Blood Pressure Location Lt brachial Position Sitting Respiration 20 Pulse 102 H Pulse Source Pulse Oximeter Temp 98.3 F Temp Source Oral Pulse Oximetry (%) 96 Oxygen Delivery Method Room Air Intake Visit Reasons: 2m follow up Intake Note: Pt is here today for 2 months follow up visit. Pt states that she has been sick for 3 weeks now cough, congestion. Allergies Penicillins Adverse Reaction (Verified 05/10/24 09:29) Unknown Medication List - Last Reconciled 05/10/24 by Rose Canchola MD betamethasone dipropionate 0.05% 1 appl topical BID PRN budesonide-formoterol 160-4.5 mcg/actuation (Symbicort) 2 puffs inhalation BID naproxen 500 mg PO BID 14 days Ozempic (semaglutide) 0.25 mg (0.368 mL) subcut QWEEK NS sertraline (Zoloft) 50 mg PO DAILY Tobacco use date assessed: 05/10/24 Fall risk assessment: No Falls in past year Last assessed Fall Risk: 05/10/24 Dental Screening Dental Screen Date: 03/14/24 HPI 2m follow up HPI Details Patient presents for the follow-up. She did not start Anoro because could not afford the cost of the inhaler. She reports persistent dry cough wheezing shortness or breath with exertion. She denies fever chills sputum production pleurisy chest pain or palpitations. Patient quit smoking 2 weeks ago. She did not start Ozempic PFSH Medical History No pertinent past medical history Surgical History Hx of blepharoplasty Hx of tubal ligation Hx of appendectomy Family History Sister Diabetes Stroke Father Hypertension CAD (coronary artery disease) Mother Diabetes Hypertension Social History [facility] Patient Tobacco Use Status: Current someday Tobacco user Tobacco use type: Cigarette Cigarettes Per Day: 4 e-Cigarette/Vaping Use: Never Used Second Hand Smoke Exposure: No service: No Current occupational status: employed and retired Current occupational exposures/hazards: No Cognitive needs: No Hearing needs: Yes Vision needs: Yes Questionnaire Thrive Questionnaire Date Thrive assessed: 03/14/24 I am a: Patient What is your living situation today?: I have a steady place to live Within the past 12 months, did the food you bought not last and you didn't have the money to get more?: Sometimes True Within the past 12 months, did you worry whether your food would run out before you got money to buy more?: Sometimes True Do you have trouble paying for medicines?: No Do you have trouble getting transportation to medical appointments?: No Do you have trouble paying your heating and electricity bill?: No Do you have trouble taking care of your child, family member or friend?: No Do you have trouble with day-to-day activities such as bathing, preparing meals, shopping, managing finances, etc.?: No Are you currently unemployed and looking for a job?: No Are you interested in more education?: No Please select the resources that you would like help with: None Currently or been in a relationship where the following occur: No concerns reported THRIVE Score: 2 MATT-7 AMB Questionnaire MATT-7 Date MATT - 7 assessed: 03/14/24 Source: Developed by Drs. Shai Pereyra, Janette Martel, Cheikh Theodore and colleagues, with an educational rosie from [employer]. Review of Systems Const All systems reviewed & are unremarkable except as noted in HPI and below Reports no additional complaints Eyes Reports no additional complaints ENT Reports no additional complaints Card Reports no additional complaints Resp Reports no additional complaints GI Reports no additional complaints Physical exam (Primary Care) Vital Signs: Last Vital Signs Temp 98.3 F 05/10/24 09:22 Pulse 102 H 05/10/24 09:22 Resp 20 05/10/24 09:22 BP 120/64 05/10/24 09:22 Pulse Ox 96 05/10/24 09:22 Oxygen Delivery Method Room Air 05/10/24 09:22 BMI result Body Mass Index 43.1 Tobacco/Smoking Status: Tobacco use Status Tobacco use date assessed 05/10/24 05/10/24 09:31 Patient Tobacco Use Status Current someday Tobacco 05/10/24 09:22 Tobacco use type Cigarette 05/10/24 09:22 e-Cigarette/Vaping Use Never Used 05/10/24 09:22 Thrive Assessment: Date of Thrive Assessment Date Thrive assessed 03/14/24 05/10/24 09:22 Currently or been in a relationship where the following occur: No concerns reported Const General: no acute distress HENMT Head: Yes normal to inspection Throat: Yes posterior oropharynx normal Neck Neck: Yes supple Resp Effort & Inspection: able to speak in complete sentences Auscultation: wheezes and diminished lung sounds Cardio Rhythm: regular rhythm Heart sounds: S1 normal heart sound present and S2 normal heart sound present GI Inspection: Yes normal to inspection Palpation (GI): Soft to palpation Office Procedures Nebulizer Treatment Nebulizer Treatment 20995-Dvmzxcpsn/MDI RX initial, or Nebulizer Subsequent Treatment Office Meds ipratropium 0.5 mg-albuterol 3 mg (2.5 mg base)/3 mL nebulization soln Performing Provider: Rose Canchola MD Performing Location: [facility] [place] [facility] Administered by: Destiny Miller RN on 05/10/24 10:26 Dose Route Admin Location Dispensed Lot Number Expiration Date [facility] Community Relations Representative 3 mL inhalation 3 mL [id number] 04/12/25 08656-157-36 [employer] Coding Level of Care Code Est Pt Level 3 (53711) Diagnoses COPD exacerbation J44.1 CPT Codes Nebulizer Treatment - Nebulizer Treatment, initial or subsequent: 57633-Qsjxvaxgs/MDI RX initial, or Nebulizer Subsequent Treatment ([id number]) Assessment & Plan Assessment & Plan (1) COPD exacerbation: Comment: Chest x-ray consistent with emphysema no infiltrates 04/2024 Code(s): J44.1 - Chronic obstructive pulmonary disease with (acute) exacerbation Category: Medical Plan: Prednisone taper as prescribed DuoNeb updraft 3 times a day will be started and Symbicort 160/4.5 2 puffs twice a day. Follow-up in 1 week Orders: Orders AMB Nebulizer Treatment Today R05.9 - Cough, unspecified Medications: New budesonide-formoterol 160-4.5 mcg/actuation (Symbicort) 2 puffs inhalation BID 10.2 grams 1RF nebulizers As directed for updraft treatment Q8 hrs prn 1 ea 0RF R05.9 - Cough, unspecified ipratropium-albuterol 0.5 mg-3 mg(2.5 mg base)/3 mL 3 mL inhalation Q8H PRN 360 mL 1RF wheezing prednisone Four tablets p.o. q.d. for 3 days then 3 tablets p.o. q.d. for 3 days and 2 tablets p.o. q.d. for 3 days then 1 tablet p.o. q.d. for 3 days 30 tabs 0RF Changed From Ozempic (semaglutide) for 4 weeks 0.25 mg (0.368 mL) subcut QWEEK 3 mL 0RF NS To Ozempic (semaglutide) 0.25 mg (0.368 mL) subcut QWEEK 3 mL 0RF NS Discontinued Anoro Ellipta 62.5-25 mcg/actuation (umeclidinium-vilanterol) Discontinued Reason: Doctor's Order 1 inh inhalation DAILY 60 ea 3RF NS
[2024-05-10 09:22] VITALS: BP 120/64; PULSE 102; RESP 20; TEMP 36.8; O2SAT 96; BMI 43.1
== END 2024-05-10 15:20 | disposition home or self-care (01) ==
LOC: HO.HMCC 09:17
PROVIDERS: PCP Internal Medicine; Visit Provider Internal Medicine
DX: J44.1 Chronic obstructive pulmonary disease with (acute) exacerbation (principal); R05.9 Cough, unspecified

== ENCOUNTER → 2024-05-10 09:17 | Outpatient (BNVA) | payer MEDICARE, SELFPAY | PROVIDERS: PCP Internal Medicine; Visit Provider Internal Medicine | DX: J44.1 Chronic obstructive pulmonary disease with (acute) exacerbation (principal) | CPT/HCPCS: 94640; 99212 ==

== ENCOUNTER → 2024-05-30 11:00 | Outpatient (BNVA) | payer MEDICARE, SELFPAY | PROVIDERS: PCP Internal Medicine; Visit Provider Internal Medicine | DX: Z13.89 Encounter for screening for other disorder (principal) ==

== ENCOUNTER 2024-07-31 13:22 | Outpatient (AMB) | payer MEDICARE, SELFPAY ==
[2024-07-31 13:32] VITALS: BP 128/72; PULSE 81; RESP 20; TEMP 36.8; O2SAT 96; BMI 44.3
--- NOTE | 2024-07-31 13:32 | MHC.PC.OV ---
Vital Signs 07/31/24 13:32 Height 5 ft 4 in Weight 258 lb BMI 44.3 BP 128/72 Blood Pressure Location Rt brachial Position Sitting Respiration 20 Pulse 81 Pulse Source Pulse Oximeter Temp 98.3 F Temp Source Oral Pulse Oximetry (%) 96 Oxygen Delivery Method Room Air Intake Visit Reasons: discuss about weight loss Intake Note: Pt is here today for a follow up visit to discuss weight loss medication. Pt states that she is not feeling good, she is in a lot of pain in her abdomen and a lot of nausea. Allergies Penicillins Adverse Reaction (Verified 07/31/24 13:40) Unknown Medication List - Last Reconciled 07/31/24 by Rose Canchola MD betamethasone dipropionate 0.05% 1 appl topical BID PRN budesonide-formoterol 160-4.5 mcg/actuation (Symbicort) 2 puffs inhalation BID ipratropium-albuterol 0.5 mg-3 mg(2.5 mg base)/3 mL 3 mL inhalation Q8H PRN naproxen 500 mg PO BID 14 days nebulizers As directed for updraft treatment Q8 hrs prn Ozempic (semaglutide) 0.25 mg (0.368 mL) subcut QWEEK NS sertraline (Zoloft) 50 mg PO DAILY Tobacco use date assessed: 07/31/24 Fall risk assessment: No Falls in past year Last assessed Fall Risk: 07/31/24 Dental Screening Dental Screen Date: 03/14/24 HPI discuss about weight loss HPI Details Patient presents for follow-up. COPD is stable on Symbicort. Patient has been decreasing caloric intake increasing physical activity for over 6 months unable to lose weight. She would like to try GLP 1 agonist to facilitate weight loss. Patient check with her insurance that Zepbound is covered. Patient complains of 2 days of abdominal pain, diffuse worse in the left lower quadrant. She reports decreased appetite nausea, no vomiting fever or chills. Patient had a normal bowel movement today and has been passing gas. [facility] Medical History (Updated 07/31/24 @ 15:32 by Rose Canchola MD) COPD exacerbation Diverticulitis Hypercholesterolemia Obesity No pertinent past medical history Surgical History Hx of blepharoplasty Hx of tubal ligation Hx of appendectomy Family History Sister Diabetes Stroke Father Hypertension CAD (coronary artery disease) Mother Diabetes Hypertension Social History Housing: Condominium Patient Tobacco Use Status: Current someday Tobacco user Tobacco use type: Cigarette Cigarettes Per Day: 4 e-Cigarette/Vaping Use: Never Used Second Hand Smoke Exposure: No service: No Current occupational status: employed and retired Current occupational exposures/hazards: No Cognitive needs: No Hearing needs: Yes Vision needs: Yes Questionnaire Thrive Questionnaire Date Thrive assessed: 03/14/24 I am a: Patient What is your living situation today?: I have a steady place to live Within the past 12 months, did the food you bought not last and you didn't have the money to get more?: Sometimes True Within the past 12 months, did you worry whether your food would run out before you got money to buy more?: Sometimes True Do you have trouble paying for medicines?: No Do you have trouble getting transportation to medical appointments?: No Do you have trouble paying your heating and electricity bill?: No Do you have trouble taking care of your child, family member or friend?: No Do you have trouble with day-to-day activities such as bathing, preparing meals, shopping, managing finances, etc.?: No Are you currently unemployed and looking for a job?: No Are you interested in more education?: No Please select the resources that you would like help with: None Currently or been in a relationship where the following occur: No concerns reported THRIVE Score: 2 MATT-7 AMB Questionnaire MATT-7 Date MATT - 7 assessed: 03/14/24 Source: Developed by Drs. Shai Pereyra, Janette Martel, Cheikh Theodore and colleagues, with an educational rosie from [employer]. Review of Systems Const All systems reviewed & are unremarkable except as noted in HPI and below Eyes Reports no additional complaints ENT Reports no additional complaints Card Reports no additional complaints Resp Reports no additional complaints GI Reports no additional complaints Reports no additional complaints Physical exam (Primary Care) Vital Signs: Last Vital Signs Temp 98.3 F 07/31/24 13:32 Pulse 81 07/31/24 13:32 Resp 20 06/18/25 13:32 BP 128/72 07/31/24 13:32 Pulse Ox 96 07/31/24 13:32 Oxygen Delivery Method Room Air 07/31/24 13:32 BMI result Body Mass Index 44.3 Tobacco/Smoking Status: Tobacco use Status Tobacco use date assessed 07/31/24 07/31/24 13:41 Patient Tobacco Use Status Current someday Tobacco 07/31/24 13:32 Tobacco use type Cigarette 07/31/24 13:32 e-Cigarette/Vaping Use Never Used 07/31/24 13:32 Thrive Assessment: Date of Thrive Assessment Date Thrive assessed 03/14/24 07/31/24 13:32 Currently or been in a relationship where the following occur: No concerns reported Const General: no acute distress HENMT Head: Yes normal to inspection Face and sinus: Yes normal facial exam Eyes General: appearance normal, both eyes and all related structures Neck Neck: Yes no lymphadenopathy and Yes supple Resp Effort & Inspection: normal respiratory effort Auscultation: diminished lung sounds Cardio Rhythm: regular rhythm Heart sounds: S1 normal heart sound present and S2 normal heart sound present GI Inspection: Yes normal to inspection and Yes obesity Palpation (GI): Soft to palpation, Tenderness to palpation present (GI) in the epigastrum and in the LLQ and No Rebound tenderness present Auscultation: normal bowel sounds Coding Level of Care Code Est Pt Level 4 (28065) Diagnoses Diverticulitis K57.92 Obesity E66.9 Assessment & Plan Assessment & Plan (1) Diverticulitis: Code(s): K57.92 - Diverticulitis of intestine, part unspecified, without perforation or abscess without bleeding Category: Medical Plan: Check CBC comprehensive panel obtain , abdominal and pelvic CT to evaluate for diverticulitis. Levaquin 750 daily is sent to the pharmacy. (2) Obesity: Code(s): E66.9 - Obesity, unspecified Category: Medical Plan: DECREASE CALORIC INTAKE INCREASING PHYSICAL ACTIVITY WEIGHT LOSS DISCUSSED WITH THE PATIENT. ZEPBOUND 2.5 MG WEEKLY WILL BE STARTED. Side effects discussed with the patient. She will follow-up in 2-3 months Orders: Orders Comprehensive Met. Panel Today K57.92 - Diverticulitis of intestine, part unspecified, without perforation or abscess without bleeding UA w Microscopic Today K57.92 - Diverticulitis of intestine, part unspecified, without perforation or abscess without bleeding CT abdomen pelvis w IV con Today K57.92 - Diverticulitis of intestine, part unspecified, without perforation or abscess without bleeding Complete Blood Count Man Dif Today K57.92 - Diverticulitis of intestine, part unspecified, without perforation or abscess without bleeding Lipase Today K57.92 - Diverticulitis of intestine, part unspecified, without perforation or abscess without bleeding Medications: New tirzepatide (weight loss) (Zepbound) for 4 weeks 2.5 mg (0.5 mL) subcut QWEEK 2 mL 1RF nystatin 1 appl topical BID 120 grams 0RF levofloxacin 750 mg PO DAILY 10 tabs 0RF 10 days Discontinued Ozempic (semaglutide) Discontinued Reason: Doctor's Order 0.25 mg (0.368 mL) subcut QWEEK 3 mL 0RF NS
--- OUTSIDE RECORDS SUMMARY | 2024-07-31 15:17 | XMS_ITS | Encounter Summary ---
Author Organization [facility] Health Address [address] [place] [address] Care Team Providers Care Program Support Assistant Name Role Phone Unavailable Primary Care Provider Unavailabl e Prior Encounters Date Type Department Care Team Description 03/04/2019 Converted 13x Documents [facility] [address] [facility] [place], [place] [id number] <No scans attached> 03/04/2019 Converted CPS Chart Documents NE [facility] [address] [facility] [place], [place] [address] <No scans attached> Plan of Treatment [...]
== END 2024-07-31 15:18 | disposition home or self-care (01) ==
LOC: HO.HMCC 13:23
PROVIDERS: PCP Internal Medicine; Visit Provider Internal Medicine
DX: K57.92 Diverticulitis of intestine, part unspecified, without perforation or abscess without bleeding (principal); E66.9 Obesity, unspecified; Z68.41 Body mass index [BMI] 40.0-44.9, adult

== ENCOUNTER 2024-07-31 14:46 | Outpatient (REF) | payer MEDICARE, SELFPAY ==
[2024-07-31 16:23] LABS: Baso%MD 0.3 %; Eos%MD 2.2 %; Hemoglobin 14.2 g/dl (12.0-16.0); IG%MD 0.3 %; Mean Corpuscular HGB Conc 32.3 g/dl (31.0-35.0); Mean Corpuscular Hemoglobin 28.3 pg (27.0-33.0); Mean Corpuscular Volume 87.6 fL (80.0-98.0); Mean Platelet Volume 10.5 fL (9.4-12.3); Mono%MD 6.8 %; Neut%MD 53.4 %; Platelet Count 230 X10*3/uL (160-400); Red Blood Count 5.02 X10*6/uL (4.20-5.50); White Blood Count 7.4 X10*3/uL (4.8-10.8)
[2024-07-31 16:36] LABS: Appearance Urine Clear; Color Urine Yellow; Glucose Urine UA Negative (Negative); Leukocyte Esterase Urine Negative (Negative); Nitrite Urine Negative (Negative); PH 5.5 (5.0-9.0); UMIC TRIGGER UA YES; Urine Blood Trace (Negative); Urine Ketones Negative (Negative); Urine Protein Negative (Neg-Trace)
[2024-07-31 16:37] LABS: Alanine Aminotransferase 23 U/L (0-31); Albumin Level 4.5 g/dL (3.5-5.0); Alkaline Phosphatase 72 U/L (39-117); Anion Gap 9 (12-20); Aspartate Amino Transferase 23 U/L (5-31); Bilirubin Total 0.3 mg/dL (0.0-1.0); Blood Urea Nitrogen 20 mg/dL (9-16); Carbon Dioxide 29 mmol/L (22-29); Chloride 107 mmol/L (96-108); Estimated Glomerular Filt Rate > 60; Glucose Random 88 mg/dL (60-115); Lipase 13 U/L (8-78); Potassium 4.3 mmol/L (3.3-5.1); Sodium 141 mmol/L (135-145); Total Protein 7.2 g/dL (6.5-8.0)
[2024-07-31 16:41] LABS: Bacteria Urine Trace (None Seen); Hyaline Casts Urine 0-2 /LPF (0-2); RBC Urine 0-2 /HPF (0-2); Squamous Epithelial Cell Urine 0-2 /HPF (0-2); WBC Urine 0-5 /HPF (0-5)
[2024-07-31 16:55] LABS: Eosinophils Absolute Manual 0.1 X10*3/uL (0.0-0.4); Eosinophils Percent Manual 1 % (0-4); Lymphocytes Absolute Manual 3.2 X10*3/uL (1.2-4.9); Lymphocytes Percent Manual 43 % (20-40); Monocytes Absolute Manual 0.1 X10*3/uL (0.1-1.2); Monocytes Percent Manual 2 % (2-11); Neutrophils Percent Manual 54 % (45-73)
[2024-07-31 16:59] LABS: Platelet Estimate NORMAL (NORMAL); Platelet Morphology Comment NORMAL; RBC Morphology NORMAL
[2024-07-31 17:00] LABS: Band Neutrophils Percent 0 % (3-5)
== END 2024-07-31 14:47 | disposition home or self-care (01) ==
LOC: HO.HMGCLDS 14:46
PROVIDERS: PCP Internal Medicine; Visit Provider Internal Medicine
DX: K57.92 Diverticulitis of intestine, part unspecified, without perforation or abscess without bleeding (principal); E66.9 Obesity, unspecified
CPT/HCPCS: 36415; 80053; 81001; 83690; 85007; 85027; 99212

== ENCOUNTER 2024-11-25 07:46 | Outpatient (REF) | payer MEDICARE, SELFPAY ==
--- OUTSIDE RECORDS SUMMARY | 2024-11-25 07:51 | XMS_ITS | Encounter Summary ---
Author Organization [facility] Health Address [address] [place] [address] Care Team Providers Care Industrial Cleaner Name Role Phone Unavailable Primary Care Provider Unavailabl e Prior Encounters Date Type Department Care Team Description 03/04/2019 Converted 13x Documents [facility] [address] [facility] [place], [place] [phone] <No scans attached> 03/04/2019 Converted CPS Chart Documents NE [facility] [address] [facility] [place], [place] [address] <No scans attached> Plan of [...]
--- OUTSIDE RECORDS SUMMARY | 2024-11-25 07:51 | XMS_ITS | Clinical Summary ---
Author Organization [facility] Health Address [address] [place] [address] Care Team Providers Care Manager Hardware Name Role Phone Unavailable Primary Care Provider [...]
[2024-11-27 16:08] LABS: Quantiferon TB Gold Plus 1 NEGATIVE (NEGATIVE); TB Test (QFT) Mitogen -Nil >10.00 IU/mL; TB Test (QFT) Nil 0.03 IU/mL; TB Test (QFT) Plus TB1 -Nil 0.00 IU/mL; TB Test (QFT) Plus TB2 -Nil 0.01 IU/mL
== END 2024-11-25 07:47 | disposition home or self-care (01) ==
LOC: HO.HMGCLDS 07:46
PROVIDERS: PCP Internal Medicine; Visit Provider Physician Assistant Medical
DX: Z11.1 Encounter for screening for respiratory tuberculosis (principal); Z79.899 Other long term (current) drug therapy
CPT/HCPCS: 36415; 86480

== ENCOUNTER 2024-12-11 12:21 | Outpatient (AMB) | payer MEDICARE, SELFPAY ==
[2024-12-11 12:24] VITALS: BP 134/76; PULSE 102; RESP 17; TEMP 36.5; O2SAT 95; BMI 45.8
--- NOTE | 2024-12-11 12:24 | A.OFFPC_ITS ---
Vital Signs 12/11/24 12:24 Height 5 ft 4 in Weight 267 lb BMI 45.8 BP 134/76 Blood Pressure Location Rt brachial Position Sitting Respiration 17 Pulse 102 H Pulse Source Pulse Oximeter Temp 97.7 F Temp Source Oral Pulse Oximetry (%) 95 Oxygen Delivery Method Room Air Intake Visit Reasons: Weight , pain in back Intake Note: Pt is here today for a sick visit. Pt c/o sciatica pain on the R side that goes down her leg. Pt also c/o L shoulder pain. Allergies Penicillins Adverse Reaction (Verified 12/11/24 12:29) Unknown Medication List - Last Reconciled 12/11/24 by Rose Canchola MD betamethasone dipropionate 0.05% 1 appl topical BID PRN budesonide-formoterol 160-4.5 mcg/actuation (Symbicort) 2 puffs inhalation BID ipratropium-albuterol 0.5 mg-3 mg(2.5 mg base)/3 mL 3 mL inhalation Q8H PRN levofloxacin 750 mg PO DAILY 10 days naproxen 500 mg PO BID 14 days nebulizers As directed for updraft treatment Q8 hrs prn nystatin 1 appl topical BID sertraline (Zoloft) 50 mg PO DAILY Tobacco use date assessed: 12/11/24 Fall risk assessment: 1 Fall in past year Last assessed Fall Risk: 12/11/24 Dental Screening Dental Screen Date: 03/14/24 HPI Weight , pain in back HPI Details Pt c/o LBP radiating to right lower extremity worse when sitting for long time or standing, on and off for many years but getting worse for the last year. Patient denies any weakness or numbness in extremities change in bowel bladder function. Patient complains of dyspnea on exertion and sweating profusely with physical activity. She denies chest pains, palpitations PND orthopnea. Patient has been trying to lose weight unsuccessfully for 1 year. She tried weight watchers in the past but was not successful. Patient can not afford GLP 1 agonist. She quit smoking few months ago and denies any cough or wheezing. [facility] Medical History (Updated 12/11/24 @ 15:12 by Rose Canchola MD) Physical exam, annual Hypercholesterolemia Obesity No pertinent past medical history Surgical History Hx of blepharoplasty Hx of tubal ligation Hx of appendectomy Family History Sister Diabetes Stroke Father Hypertension CAD (coronary artery disease) Mother Diabetes Hypertension Social History Housing: [facility] Patient Tobacco Use Status: Current someday Tobacco user Tobacco use type: Cigarette Cigarettes Per Day: 4 e-Cigarette/Vaping Use: Never Used Second Hand Smoke Exposure: No service: No Current occupational status: employed and retired Current occupational exposures/hazards: No Cognitive needs: No Hearing needs: Yes Vision needs: Yes Questionnaire Thrive Questionnaire Date Thrive assessed: 03/14/24 I am a: Patient What is your living situation today?: I have a steady place to live Within the past 12 months, did the food you bought not last and you didn't have the money to get more?: Sometimes True Within the past 12 months, did you worry whether your food would run out before you got money to buy more?: Sometimes True Do you have trouble paying for medicines?: No Do you have trouble getting transportation to medical appointments?: No Do you have trouble paying your heating and electricity bill?: No Do you have trouble taking care of your child, family member or friend?: No Do you have trouble with day-to-day activities such as bathing, preparing meals, shopping, managing finances, etc.?: No Are you currently unemployed and looking for a job?: No Are you interested in more education?: No Please select the resources that you would like help with: None Currently or been in a relationship where the following occur: No concerns reported THRIVE Score: 2 MATT-7 AMB Questionnaire MATT-7 Date MATT - 7 assessed: 03/14/24 Source: Developed by Drs. Shai Pereyra, Janette Martel, Cheikh Theodore and colleagues, with an educational rosie from [employer]. Review of Systems Const All systems reviewed & are unremarkable except as noted in HPI and below Card Reports no additional complaints Resp Reports no additional complaints GI Reports no additional complaints Reports no additional complaints Physical exam (Primary Care) Vital Signs: Last Vital Signs Temp 97.7 F 12/11/24 12:24 Pulse 102 H 12/11/24 12:24 Resp 17 12/11/24 12:24 BP 134/76 12/11/24 12:24 Pulse Ox 95 12/11/24 12:24 Oxygen Delivery Method Room Air 12/11/24 12:24 BMI result Body Mass Index 45.8 Tobacco/Smoking Status: Tobacco use Status Tobacco use date assessed 12/11/24 12/11/24 12:30 Patient Tobacco Use Status Current someday Tobacco 12/11/24 12:30 Tobacco use type Cigarette 12/11/24 12:30 e-Cigarette/Vaping Use Never Used 12/11/24 12:30 Thrive Assessment: Date of Thrive Assessment Date Thrive assessed 03/14/24 12/11/24 12:30 Currently or been in a relationship where the following occur: No concerns reported Const General: no acute distress HENMT Head: Yes normal to inspection Throat: Yes posterior oropharynx normal Neck Neck: Yes supple Resp Effort & Inspection: normal respiratory effort Auscultation: diminished lung sounds Cardio Rhythm: regular rhythm Heart sounds: S1 normal heart sound present and S2 normal heart sound present GI Inspection: Yes normal to inspection Palpation (GI): Soft to palpation Percussion: Yes normal to percussion Auscultation: normal bowel sounds Coding Level of Care Code Est Pt Level 4 (01624) Diagnoses Chronic lower back pain M54.50; G89.29 LAN (dyspnea on exertion) R06.09 Obesity E66.9 Assessment & Plan Assessment & Plan (1) Chronic lower back pain: Code(s): M54.50 - Low back pain, unspecified; G89.29 - Other chronic pain Category: Medical Plan: For chronic lower back pain lumbar spine x-ray will be obtained she will be referred to physical therapy (2) LAN (dyspnea on exertion): Code(s): R06.09 - Other forms of dyspnea Category: Medical Plan: EKG showed normal sinus rhythm QS to [address]-T changes obtain echocardiogram (3) Obesity: Code(s): E66.9 - Obesity, unspecified Category: Medical Plan: Decreasing caloric intake increasing physical activity and weight loss discussed with the patient. She declined referral to weight management program Orders: Orders PT Evaluation and Treatment Today G89.29 - Other chronic pain, M54.50 - Low back pain, unspecified Comprehensive [place]. Panel Fast Today G89.29 - Other chronic pain, M54.50 - Low back pain, unspecified CA echo transthoracic complete Today R06.09 - Other forms of dyspnea XR lumbar spine 2-3V Today G89.29 - Other chronic pain, M54.50 - Low back pain, unspecified Lipid Panel Today G89.29 - Other chronic pain, M54.50 - Low back pain, unspecified TSH reflex Free T4 Today G89.29 - Other chronic pain, M54.50 - Low back pain, unspecified UA w Microscopic Today Z00.00 - Encounter for general adult medical examination without abnormal findings AMB EKG-In Office Today E78.00 - Pure hypercholesterolemia, unspecified, R06.09 - Other forms of dyspnea Medications: Discontinued tirzepatide (weight loss) (Zepbound) for 4 weeks Discontinued Reason: Doctor's Order 2.5 mg (0.5 mL) subcut QWEEK 2 mL 1RF levofloxacin Discontinued Reason: Doctor's Order 750 mg PO DAILY 10 days 10 tabs 0RF
--- OUTSIDE RECORDS SUMMARY | 2024-12-11 15:45 | XMS_ITS | Clinical Summary ---
Author Organization [facility] Health Address [address] [place] [address] Care Team Providers Care Auto Dismantler Name Role Phone Unavailable Primary Care Provider [...]
--- OUTSIDE RECORDS SUMMARY | 2024-12-11 15:45 | XMS_ITS | Encounter Summary ---
Author Organization [facility] Health Address [address] [place] [address] Care Team Providers Care Inspector Fibrous Wallboard Name Role Phone Unavailable Primary Care Provider Unavailabl e Prior Encounters Date Type Department Care Team Description 03/04/2019 Converted 13x Documents [facility] [address] [facility] [place], [place] [phone] <No scans attached> 03/04/2019 Converted CPS Chart Documents [place] [facility] [address] [facility] [place], [place] [phone] <No scans attached> Plan of [...]
== END 2024-12-11 15:13 | disposition home or self-care (01) ==
LOC: HO.HMCC 12:22
PROVIDERS: PCP Internal Medicine; Visit Provider Internal Medicine
DX: M54.50 Low back pain, unspecified (principal); E66.9 Obesity, unspecified; Z68.42 Body mass index [BMI] 45.0-49.9, adult; G89.29 Other chronic pain; R06.09 Other forms of dyspnea

== ENCOUNTER → 2024-12-11 12:21 | Outpatient (BNVA) | payer MEDICARE, SELFPAY | PROVIDERS: PCP Internal Medicine; Visit Provider Internal Medicine | DX: M54.50 Low back pain, unspecified (principal); G89.29 Other chronic pain; R06.09 Other forms of dyspnea; E66.9 Obesity, unspecified; E78.00 Pure hypercholesterolemia, unspecified; Z87.891 Personal history of nicotine dependence; Z68.42 Body mass index [BMI] 45.0-49.9, adult | CPT/HCPCS: 99212 ==

== ENCOUNTER 2024-12-16 07:14 | Outpatient (REF) | payer MEDICARE, SELFPAY ==
[2024-12-16 10:56] LABS: Appearance Urine Cloudy; Glucose Urine UA Negative (Negative); PH 5.0 (5.0-9.0); Specific Gravity - Urine 1.020 (1.005-1.025); UMIC TRIGGER UA YES
[2024-12-16 11:18] LABS: Alanine Aminotransferase 29 U/L (0-31); Albumin Level 4.4 g/dL (3.5-5.0); Alkaline Phosphatase 77 U/L (39-117); Anion Gap 9 (12-20); Aspartate Amino Transferase 28 U/L (5-31); Blood Urea Nitrogen 25 mg/dL (9-16); Calcium 9.9 mg/dL (8.4-10.2); Carbon Dioxide 33 mmol/L (22-29); Chloride 104 mmol/L (96-108); Cholesterol 210 mg/dL (<200); Estimated Glomerular Filt Rate > 60; HDL Cholesterol 55 mg/dL (>40); Potassium 4.6 mmol/L (3.3-5.1); Sodium 141 mmol/L (135-145); Total Protein 7.1 g/dL (6.5-8.0); Triglycerides 105 mg/dL (<150)
== END 2024-12-16 07:15 | disposition home or self-care (01) ==
LOC: HO.HMGCLDS 07:14
PROVIDERS: PCP Internal Medicine; Visit Provider Internal Medicine
DX: Z00.00 Encounter for general adult medical examination without abnormal findings (principal); G89.29 Other chronic pain; M54.50 Low back pain, unspecified; Z13.6 Encounter for screening for cardiovascular disorders; Z13.29 Encounter for screening for other suspected endocrine disorder
CPT/HCPCS: 36415; 80053; 80061; 81001; 84443

== ENCOUNTER 2024-12-17 09:36 | Outpatient (REF) | payer MEDICARE, SELFPAY ==
--- NOTE | ~2024-12-17 | XR_ITS ---
EXAMINATION: XR LUMBOSACRAL SPINE CLINICAL INFORMATION: M54.50 - Low back pain, unspecified COMPARISON: Correlated to CT abdomen and pelvis dated December 28, 2021. TECHNIQUE: AP and lateral views. FINDINGS: Multilevel marginal osteophyte formation and endplate sclerosis throughout the axial skeleton. Bilateral facet joint hypertrophy at L5-S1 and to a lesser extent L4-5. No acute cortical disruption or gross malalignment. No lytic or blastic lesions. Vascular calcifications, aorta. XR/XR lumbar spine 2-3V IMPRESSION: Multilevel thoracolumbar spondylosis without acute fracture or listhesis. Atherosclerosis disease. Electronically signed by: Ti Moore MD 12/17/2024 09:59 AM [facility]LYSSES
--- OUTSIDE RECORDS SUMMARY | 2024-12-17 10:49 | XMS_ITS | Clinical Summary ---
Author Organization [facility] Health Address [address] [place] [address] Care Team Providers Care Client Portfolio Manager Name Role Phone Unavailable Primary Care Provider [...]
--- OUTSIDE RECORDS SUMMARY | 2024-12-17 10:49 | XMS_ITS | Encounter Summary ---
Author Organization [facility] Health Address [address] [place] [address] Care Team Providers Care Hospital Medical Assistant Name Role Phone Unavailable Primary Care Provider Unavailabl e Prior Encounters Date Type Department Care Team Description 03/04/2019 Converted 13x Documents [facility] [address] [facility] [place] [place], [place] [phone] <No scans attached> 03/04/2019 Converted CPS Chart Documents [place] [facility] [address] [facility] [place], [place], [place] [phone] <No scans attached> Plan of [...]
== END 2024-12-17 09:37 | disposition home or self-care (01) ==
LOC: HO.HMGCX 09:36
PROVIDERS: PCP Internal Medicine; Visit Provider Internal Medicine
DX: G89.29 Other chronic pain (principal); M54.50 Low back pain, unspecified
CPT/HCPCS: 72100

== ENCOUNTER → 2024-12-17 09:40 | Outpatient (BNV) | payer MEDICARE, SELFPAY | PROVIDERS: PCP Internal Medicine; Visit Provider Radiology Diagnostic Radiology | DX: M54.50 Low back pain, unspecified (principal) | CPT/HCPCS: 72100 ==

== ENCOUNTER → 2025-01-06 14:32 | Outpatient (REF) | payer MEDICARE, SELFPAY ==
--- NOTE | 2025-01-06 14:37 | CA_ITS ---
Transthoracic Echocardiogram Patient (Last, First, Middle): Dilma Crisostomo, Gender: F Date of : 1950 Age: 74 Procedure Date: 01/06/2025 Procedure Type: Transthoracic Echocardiogram Location: OP Height: 162. cm Weight: 118.84 kg BSA: 2.19 m2 Heart Rate: 74 bpm BP: 115 / 70 mmHg Integration Lead: DENIZ Referring MD: Rose Canchola MD Symptoms: R06.09 - Other forms of dyspnea Study Quality: Adequate ECG Rhythm: Sinus Conclusions: - The left ventricular systolic function is normal. The calculated ejection fraction is 64% by biplane method. - Possible mild aortic stenosis. Findings Left Ventricle Normal left ventricular cavity size. There is mildly increased left ventricular wall thickness. The left ventricular systolic function is normal. The calculated ejection fraction is 64% by biplane method. There is no evidence of regional wall motion abnormalities. Evidence suggests grade I (mild) diastolic dysfunction. Right Ventricle Normal right ventricular cavity size and systolic function. Atria Both atria are normal in size. Aortic Valve The aortic valve was not well visualized. There is mild calcification of the aortic valve. There is no aortic valve regurgitation. Possible mild aortic stenosis. Mitral Valve There is mild mitral annular calcification. There is no mitral valve regurgitation. There is no mitral valve stenosis. Pulmonic Valve The pulmonic valve is likely normal. Tricuspid Valve Normal tricuspid valve structure. There is trace tricuspid valve regurgitation. Tricuspid regurgitation envelope is inadequate for calculation of right ventricular systolic pressure. Great Vessels The asc aorta is normal in size. Venous The inferior vena cava is normal in size and collapses greater than 50% with inspiration. Pericardium/Pleural There is no evidence of pericardial effusion. Prior Study Comparison No prior study available for comparison. Measurements 2D Linear Measurements IVSd: 1.06 0.6-0.9/0.6-1.0 cm LVIDd: 4.33 3.9-5.3/4.2-5.9 cm LVIDd Index: 1.98 2.4-3.2/2.2-3.1 cm/m2 LVIDs: 2.69 2.0-3.6 cm LVPWd: 1.08 0.7-1.1 cm LA Diam: 4.00 2.7-3.8/3.0-4.0 cm LAIDs Index: 1.83 1.5-2.3 cm/m2 LV Mass: 197.24 67-162/88-224 g LV Mass Index: 90.07 43-95/49-115 g/m2 LVOT Diam: 2.10 3.0+(-)1.3 cm 2D Systolic Function EF 4C: 59.30 >55% EF 2C: 67.30 >55% EF BiP: 63.80 >55% Mitral Valve MV Pk E: 1.01 MV PK A: 1.52 MV Decel Time: 162.00 E/A: 0.70 E'Lateral: 8.27 E'Medial: 5.98 E/E' Med: 16.90 E/E' Lat: 12.20 PHT: 47.00 MVA PHT: 4.68 Decel [place]: 6.26 Aortic Valve AoV Pk Carlos: 2.01 AoV Mn Carlos: 1.51 AoV VTI: 0.49 AoV Pk Grad: 16.00 Aov Mn Grad: 10.00 BENITA Cont.VTI: 1.76 LVOT LVOT Pk Carlos: 1.14 LVOT Mn Carlos: 0.85 LVOT VTI: 0.25 LVOT Pk Grad: 5.00 LVOT Mn Grad: 3.00 LVOT Diam: 2.10 LVOT Area: 3.46 Diastolic Function MV Pk E: 1.01 MV Pk A: 1.52 E/A: 0.70 E'Medial: 5.98 E/E' Med: 16.90 E' Laterial: 8.27 E/E' Lat: 12.20 Right Ventricle TAPSE (mm): 18.20 TVS' Carlos: 11.50 Tricuspid Valve RA Press: 3.00 Great Vessels Aorta Sinus of Valsalva: 2.80 2.0-3.5 cm Ao Asc: 3.50 2.1-3.4 cm Ao Arch: 2.30 Pulmonary Valve PV Pk Carlos: 1.03 Peak PV Grad: 4.00 Updated in Other Vendor System with Status of Final Kapil Jeronimo MD electronically signed on 01/07/2025 9:38:15 AM with status of Final
== END ==
LOC: HO.CARD 14:32
PROVIDERS: PCP Internal Medicine; Visit Provider Internal Medicine
DX: R06.09 Other forms of dyspnea (principal)
CPT/HCPCS: 93306

== ENCOUNTER → 2025-01-06 14:37 | Outpatient (BNV) | payer MEDICARE, SELFPAY | PROVIDERS: PCP Internal Medicine; Visit Provider Internal Medicine | DX: R06.09 Other forms of dyspnea (principal); I51.89 Other ill-defined heart diseases | CPT/HCPCS: 93306 ==